=== PATIENT | female | born 1955 | race Caucasian/White ===

== ENCOUNTER → 2019-12-14 15:53 | Outpatient (BNVA) | payer MEDICAID, SELFPAY | PROVIDERS: Family Provider Internal Medicine; PCP Internal Medicine; Visit Provider Nurse Practitioner Family | DX: Z11.59 Encounter for screening for other viral diseases (principal); Z20.828 Contact with and (suspected) exposure to other viral communicable diseases; J06.9 Acute upper respiratory infection, unspecified | CPT/HCPCS: 87635 ==

== ENCOUNTER 2019-12-16 18:18 | Emergency (ER) | payer MEDICAID, SELFPAY ==
[2019-12-16 18:50] VITALS: BP 166/89; PULSE 101; RESP 28; TEMP 37.9; O2SAT 94; BMI 22.7
--- NOTE | 2019-12-16 20:05 | CTR_ITS ---
PROCEDURE INFORMATION: Exam: CT Head Without Contrast Exam date and time: 12/16/2019 8:59 PM Age: 64 years old Clinical indication: Patient HX: General weakness with low grade fever. History of stroke. Covid positive; Additional info: Generalized weakness TECHNIQUE: Imaging protocol: Computed tomography of the head without contrast. Radiation optimization: All CT scans at this facility use at least one of these dose optimization techniques: automated exposure control; mA and/or kV adjustment per patient size (includes targeted exams where dose is matched to clinical indication); or iterative reconstruction. COMPARISON: CT head wo con* [id number] 12/09/2018 8:09 PM RADIATION DOSE METRICS: Total DLP (mGy-cm): 772.06 FINDINGS: Brain: Mild diffuse cortical volume loss. Mild hypodensities in supratentorial periventricular and subcortical white matter. Chronic small lacunar infarct in the left thalamus. Stable encephalomalacia in the medial left temporal lobe. No intracranial hemorrhage. Cerebral ventricles: No ventriculomegaly. Bones/joints: Unremarkable. No acute fracture. Paranasal sinuses: Mild mucosal thickening in the ethmoid air cells. The sinuses are otherwise clear. Mastoid air cells: Visualized mastoid air cells are well aerated. Vasculature: No hyperdense artery. Soft tissues: Unremarkable. CT/CT head wo con* [id number] IMPRESSION: 1. No acute intracranial abnormality. 2. Mild microangiopathy. Radiation Dose CTDIVOL = (mGy): DLP = 772.06 (mGy-cm)
--- NOTE | 2019-12-16 20:05 | XRR_ITS ---
PROCEDURE INFORMATION: Exam: XR Chest, 1 View Exam date and time: 12/16/2019 8:59 PM Age: 64 years old Clinical indication: Other: Weakness TECHNIQUE: Imaging protocol: XR of the chest Views: 1 view. COMPARISON: CR Chest 1 [place] [id number] 12/09/2018 7:55 PM FINDINGS: Lungs: Unremarkable. No consolidation. Pleural space: Unremarkable. No pleural effusion. No pneumothorax. Heart/Mediastinum: Unremarkable. No cardiomegaly. Bones/joints: Mild scoliosis. XR/XR chest 1V portable [id number] IMPRESSION: No acute findings.
--- NOTE | 2019-12-16 20:06 | ECG_ITS ---
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 Measurements Intervals [place] Rate: 94 P: 78 [place]: 186 QRS: 70 QRSD: 91 T: 91 QT: 350 QTc: 439 Interpretive Statements SINUS RHYTHM POSSIBLE RIGHT ATRIAL ENLARGEMENT [0.25mV P WAVE] POSSIBLE LEFT ATRIAL ENLARGEMENT [-0.1mV P WAVE IN V1/V2] MODERATE ST DEPRESSION [0.05+ mV ST DEPRESSION] Compared to ECG 12/09/2018 20:01:51 Left ventricular hypertrophy no longer present ST (T wave) deviation still present Electronically Signed On 12-16-2019 20:35:48 CDT by Rema Hurtado M.D. [id number]
--- NOTE | 2019-12-16 20:07 | ED_ITS ---
Documented by User: Azeem Dela Cruz [place] [facility] [place]17[place] 00:18 HPI - COVID General: Chief Complaint: COVID symptoms Stated Complaint: awaiting covid results/weakness Time Seen by Provider: 12/16/19 19:22 Source: patient and family Mode of arrival: ambulatory Triage information: Has fever, cough or shortness of breath . No known COVID + exposure last 14 days History of Present Illness: HPI Narrative: Patient is a 64-year-old female with a history of diabetes, hypertension, prior CVA, who presents to the emergency department with complaints of generalized weakness for the last 2 days. Patient has been progressively getting weaker and today she had severe difficulty ambulating. She has also had a low-grade fever. No chest pain, no shortness of breath, no nausea or vomiting. MD complaint: reported COVID exposure and has COVID symptoms Prior covid testing: yes, results pending at [facility] [place] location COVID 19 common symptoms: positive fever(s); negative non-productive cough, productive cough, dyspnea, headache(s), throat pain, nausea or vomiting Pertinent comorbid conditions: diabetes and hypertension COVID Results: SARS-CoV-2 Antigen (Rapid) Positive (Negative) H 12/16/19 20:24 12/16/19 SARS-CoV-2 RNA (RT-PCR) Pending 12/14/19 15:53 12/14/19 Review of Systems General: Reports: 10 or more systems reviewed and unremarkable except in HPI and below Const: Reports: fever(s) Eyes: Denies: change in vision or blurry vision ENMT: Denies: throat pain, enlarged tonsils, odynophagia, hoarseness, mouth pain or swelling of lips/tongue Card: Denies: palpitations, irregular heart rhythm, edema or swelling of feet/ankles Resp: Denies: dyspnea, productive cough or non-productive cough GI: Denies: abdominal pain, nausea or vomiting : Denies: flank pain, difficulty voiding, dysuria, urinary frequency, urinary urgency or urinary hesitancy Musc: Denies: neck pain, back pain or extremity swelling Skin/Breast: Denies: rash, pruritus or erythema Neuro: Denies: headache(s), numbness in extremities or weakness in extremities Endo: Denies: polyuria, polydipsia or tired all the time Physical Exam Const: COMMON NORMALS: no acute distress, average body habitus, patient oriented x3, no limitations, healthy appearing, alert and well nourished HENMT: COMMON NORMALS: normocephalic, atraumatic and moist oral mucous membranes HEAD & SCALP: normocephalic and atraumatic Neck/C-Spine: COMMON NORMALS: full ROM, supple, no meningeal signs, no JVD and No carotid bruits Resp: COMMON NORMALS: normal respiratory effort, No retractions, No use of accessory muscles, clear to auscultation bilaterally and percussion normal AUSCULTATION: clear to auscultation bilaterally PERCUSSION: percussion normal Cardio: COMMON NORMALS: no JVD, regular rate, regular rhythm, S1 normal heart sound present, S2 normal heart sound present, No gallops present (Cardio), No clicks present (Cardio), No murmurs present (Cardio), No rub (Cardio) and Pe ripheral pulses 2+ throughout RATE: regular rate RHYTHM: regular rhythm HEART SOUNDS: S1 normal heart sound present and S2 normal heart sound present PERIPHERAL PULSES: Peripheral pulses 2+ throughout GI: COMMON NORMALS: Normal to inspection, nondistended, normoactive bowel sounds present, Soft to palpation, non-tender, No hepatosplenomegaly present, no masses and no bruits PALPATION: Yes Soft to palpation and Yes No hepatosplenomegaly present Extremity: COMMON NORMALS: normal to inspection, full ROM, capillary refill normal, no calf tenderness and no pedal edema Neuro: COMMON NORMALS: patient oriented x3 SENSORIUM/ORIENTATION: Yes alert MENINGEAL SIGNS: Yes no meningeal signs Skin: COMMON NORMALS: no rashes or lesions noted, no wounds, turgor normal, no jaundice, no petechiae and no mottling GENERAL SKIN EXAM: no rashes or lesions noted and turgor normal Course Vital Signs: Vital signs: Vital Signs Temperature 100.2 F H 12/16/19 18:50 Pulse Rate 97 12/16/19 21:45 Respiratory Rate 21 H 12/16/19 21:45 Blood Pressure 174/94 12/16/19 21:45 Pulse Oximetry 93 12/16/19 21:45 MDM - COVID Lab Data Result diagrams: 12/16/19 20:24 12/17/19 00:27 Labs: Lab Results 12/16/19 12/16/19 12/16/19 Range/Units 20:22 20:24 20:24 WBC 7.8 (4.0-10.0) 10^3/uL RBC 5.24 (4.1-5.3) 10^6/uL Hgb 13.9 (11.5-15.3) g/dL Hct 41.8 (37.0-47.0) % MCV 79.8 L (81-99) fL MCH 26.5 L (28.0-34.0) pg MCHC 33.3 (30.0-36.0) g/dL RDW 13.5 (12.1-15.1) % Plt Count 218 (130-400) 10^3/cmm MPV 10.7 H (7.4-10.4) fL Neut % (Auto) 79.3 % Lymph % (Auto) 14.7 % Morrison % (Auto) 4.9 % Eos % (Auto) 0.0 % Baso % (Auto) 0.3 % Neut # (Auto) 6.21 (1.8-7.7) 10^3/uL Lymph # (Auto) 1.2 (0.8-4.8) 10^3/uL Morrison # (Auto) 0.4 (0.2-0.9) 10^3/uL Eos # (Auto) 0.0 (0.0-0.8) 10^3/uL Baso # (Auto) 0.0 (0.0-0.1) 10^3/uL Nucleated RBC % (auto) 0 % Nucleated RBCs # 0.0 /100WBC PT 12.50 (12.1-14.9) SECONDS INR 0.91 (0.8-1.2) D-Dimer 1.80 H (0-0.59) ug/mIFEU Specimen Type Sample Site ABG pH (7.35-7.45) ABG pCO2 (35-45) mmHg ABG pO2 (80.0-100.0) mmHg ABG HCO3 (22-26) mmol/L ABG Base Excess (-2.0-2.0) mmol/L Vidal Test Hematocrit (37-47) % O2 Delivery Device FiO2 % Specimen Drawn By [employer] ID Sodium (136-145) mmol/L Potassium (3.5-5.1) mmol/L Chloride (98-107) mmol/L Carbon Dioxide (22-29) mmol/L Anion Gap (5-19) BUN (8-23) mg/dL Creatinine (0.5-0.9) mg/dL GFR Calculation (90-130) mL/min Glucose (65-115) mg/dL POC Glucose (70-110) mg/dL Estimat Average Glucose Hemoglobin A1c (4.0-6.0) % Calculated Osmolality (285-295) mOsm/kg Lactic Acid (0.5-2.2) mmol/L Calcium (8.5-10.5) mg/dL Magnesium (1.7-2.3) mg/dL Total Bilirubin (0.15-1.2) mg/dL AST (0-32) U/L ALT (0-33) U/L Alkaline Phosphatase (35-105) IU/L Lactate Dehydrogenase (135-214) U/L Creatine Kinase (26-192) U/L Troponin T Baseline (0-10) ng/L Troponin T 120 Minute (0-10) ng/L Delta Troponin T (0-10) ABS# C-Reactive Protein (0.0-4.9) mg/L NT-Pro-B Natriuret Pep (0-125) pg/mL Total Protein (6.6-8.7) g/dL Albumin (3.5-5.2) g/dL Globulin (1.3-4.6) g/dL Procalcitonin (0-0.5) ng/mL Serum Ketones (Negative) Influenza Type A Ag Negative (Negative) Influenza Type B Ag Negative (Negative) SARS-CoV-2 Ag (Rapid) (Negative) 12/16/19 12/16/19 12/16/19 Range/Units 20:24 20:24 20:24 WBC (4.0-10.0) 10^3/uL RBC (4.1-5.3) 10^6/uL Hgb (11.5-15.3) g/dL Hct (37.0-47.0) % MCV (81-99) fL MCH (28.0-34.0) pg MCHC (30.0-36.0) g/dL RDW (12.1-15.1) % Plt Count (130-400) 10^3/cmm MPV (7.4-10.4) fL Neut % (Auto) % Lymph % (Auto) % Morrison % (Auto) % Eos % (Auto) % Baso % (Auto) % Neut # (Auto) (1.8-7.7) 10^3/uL Lymph # (Auto) (0.8-4.8) 10^3/uL Morrison # (Auto) (0.2-0.9) 10^3/uL Eos # (Auto) (0.0-0.8) 10^3/uL Baso # (Auto) (0.0-0.1) 10^3/uL Nucleated RBC % (auto) % Nucleated RBCs # /100WBC PT (12.1-14.9) SECONDS INR (0.8-1.2) D-Dimer (0-0.59) ug/mIFEU Specimen Type Sample Site ABG pH (7.35-7.45) ABG pCO2 (35-45) mmHg ABG pO2 (80.0-100.0) mmHg ABG HCO3 (22-26) mmol/L ABG Base Excess (-2.0-2.0) mmol/L Vidal Test Hematocrit (37-47) % O2 Delivery Device FiO2 % Specimen Drawn By [employer] ID Sodium 128 L (136-145) mmol/L Potassium 4.6 (3.5-5.1) mmol/L Chloride 91 L (98-107) mmol/L Carbon Dioxide 19 L (22-29) mmol/L Anion Gap 22.6 H (5-19) BUN 16 (8-23) mg/dL Creatinine 0.6 (0.5-0.9) mg/dL GFR Calculation 100.6 (90-130) mL/min Glucose 416 H (65-115) mg/dL POC Glucose (70-110) mg/dL Estimat Average Glucose Hemoglobin A1c (4.0-6.0) % Calculated Osmolality 285 (285-295) mOsm/kg Lactic Acid 1.3 (0.5-2.2) mmol/L Calcium 9.0 (8.5-10.5) mg/dL Magnesium 1.8 (1.7-2.3) mg/dL Total Bilirubin 0.4 (0.15-1.2) mg/dL AST 23 (0-32) U/L ALT 16 (0-33) U/L Alkaline Phosphatase 88 (35-105) IU/L Lactate Dehydrogenase 168 (135-214) U/L Creatine Kinase 22 L (26-192) U/L Troponin T Baseline 15 H (0-10) ng/L Troponin T 120 Minute (0-10) ng/L Delta Troponin T (0-10) ABS# C-Reactive Protein 149.1 H (0.0-4.9) mg/L NT-Pro-B Natriuret Pep 37 (0-125) pg/mL Total Protein 6.4 L (6.6-8.7) g/dL Albumin 3.3 L (3.5-5.2) g/dL Globulin 3.1 (1.3-4.6) g/dL Procalcitonin 0.09 (0-0.5) ng/mL Serum Ketones (Negative) Influenza Type A Ag (Negative) Influenza Type B Ag (Negative) SARS-CoV-2 Ag (Rapid) (Negative) 12/16/19 12/16/19 12/16/19 Range/Units 20:24 20:24 20:24 WBC (4.0-10.0) 10^3/uL RBC (4.1-5.3) 10^6/uL Hgb (11.5-15.3) g/dL Hct (37.0-47.0) % MCV (81-99) fL MCH (28.0-34.0) pg MCHC (30.0-36.0) g/dL RDW (12.1-15.1) % Plt Count (130-400) 10^3/cmm MPV (7.4-10.4) fL Neut % (Auto) % Lymph % (Auto) % Morrison % (Auto) % Eos % (Auto) % Baso % (Auto) % Neut # (Auto) (1.8-7.7) 10^3/uL Lymph # (Auto) (0.8-4.8) 10^3/uL Morrison # (Auto) (0.2-0.9) 10^3/uL Eos # (Auto) (0.0-0.8) 10^3/uL Baso # (Auto) (0.0-0.1) 10^3/uL Nucleated RBC % (auto) % Nucleated RBCs # /100WBC PT (12.1-14.9) SECONDS INR (0.8-1.2) D-Dimer (0-0.59) ug/mIFEU Specimen Type Sample Site ABG pH (7.35-7.45) ABG pCO2 (35-45) mmHg ABG pO2 (80.0-100.0) mmHg ABG HCO3 (22-26) mmol/L ABG Base Excess (-2.0-2.0) mmol/L Vidal Test Hematocrit (37-47) % O2 Delivery Device FiO2 % Specimen Drawn By [employer] ID Sodium (136-145) mmol/L Potassium (3.5-5.1) mmol/L Chloride (98-107) mmol/L Carbon Dioxide (22-29) mmol/L Anion Gap (5-19) BUN (8-23) mg/dL Creatinine (0.5-0.9) mg/dL GFR Calculation (90-130) mL/min Glucose (65-115) mg/dL POC Glucose (70-110) mg/dL Estimat Average Glucose 329 Hemoglobin A1c 13.1 H (4.0-6.0) % Calculated Osmolality (285-295) mOsm/kg Lactic Acid (0.5-2.2) mmol/L Calcium (8.5-10.5) mg/dL Magnesium (1.7-2.3) mg/dL Total Bilirubin (0.15-1.2) mg/dL AST (0-32) U/L ALT (0-33) U/L Alkaline Phosphatase (35-105) IU/L Lactate Dehydrogenase (135-214) U/L Creatine Kinase (26-192) U/L Troponin T Baseline (0-10) ng/L Troponin T 120 Minute (0-10) ng/L Delta Troponin T (0-10) ABS# C-Reactive Protein (0.0-4.9) mg/L NT-Pro-B Natriuret Pep (0-125) pg/mL Total Protein (6.6-8.7) g/dL Albumin (3.5-5.2) g/dL Globulin (1.3-4.6) g/dL Procalcitonin (0-0.5) ng/mL Serum Ketones Positive H (Negative) Influenza Type A Ag (Negative) Influenza Type B Ag (Negative) SARS-CoV-2 Ag (Rapid) Positive H (Negative) 12/16/19 12/16/19 12/16/19 Range/Units 22:07 22:31 23:39 WBC (4.0-10.0) 10^3/uL RBC (4.1-5.3) 10^6/uL Hgb (11.5-15.3) g/dL Hct (37.0-47.0) % MCV (81-99) fL MCH (28.0-34.0) pg MCHC (30.0-36.0) g/dL RDW (12.1-15.1) % Plt Count (130-400) 10^3/cmm MPV (7.4-10.4) fL Neut % (Auto) % Lymph % (Auto) % Morrison % (Auto) % Eos % (Auto) % Baso % (Auto) % Neut # (Auto) (1.8-7.7) 10^3/uL Lymph # (Auto) (0.8-4.8) 10^3/uL Morrison # (Auto) (0.2-0.9) 10^3/uL Eos # (Auto) (0.0-0.8) 10^3/uL Baso # (Auto) (0.0-0.1) 10^3/uL Nucleated RBC % (auto) % Nucleated RBCs # /100WBC PT (12.1-14.9) SECONDS INR (0.8-1.2) D-Dimer (0-0.59) ug/mIFEU Specimen Type Arterial Sample Site Brachial, left ABG pH 7.44 (7.35-7.45) ABG pCO2 28.5 L (35-45) mmHg ABG pO2 54.8 L (80.0-100.0) mmHg ABG HCO3 19.4 L (22-26) mmol/L ABG Base Excess -3.5 L (-2.0-2.0) mmol/L Vidal Test N/a Hematocrit 43.2 (37-47) % O2 Delivery Device Room air FiO2 21.0 % Specimen Drawn By [employer]arkr Sodium (136-145) mmol/L Potassium (3.5-5.1) mmol/L Chloride (98-107) mmol/L Carbon Dioxide (22-29) mmol/L Anion Gap (5-19) BUN (8-23) mg/dL Creatinine (0.5-0.9) mg/dL GFR Calculation (90-130) mL/min Glucose (65-115) mg/dL POC Glucose 295 (70-110) mg/dL Estimat Average Glucose Hemoglobin A1c (4.0-6.0) % Calculated Osmolality (285-295) mOsm/kg Lactic Acid (0.5-2.2) mmol/L Calcium (8.5-10.5) mg/dL Magnesium (1.7-2.3) mg/dL Total Bilirubin (0.15-1.2) mg/dL AST (0-32) U/L ALT (0-33) U/L Alkaline Phosphatase (35-105) IU/L Lactate Dehydrogenase (135-214) U/L Creatine Kinase (26-192) U/L Troponin T Baseline (0-10) ng/L Troponin T 120 Minute 13.66 H (0-10) ng/L Delta Troponin T -1.34 L (0-10) ABS# C-Reactive Protein (0.0-4.9) mg/L NT-Pro-B Natriuret Pep (0-125) pg/mL Total Protein (6.6-8.7) g/dL Albumin (3.5-5.2) g/dL Globulin (1.3-4.6) g/dL Procalcitonin (0-0.5) ng/mL Serum Ketones (Negative) Influenza Type A Ag (Negative) Influenza Type B Ag (Negative) SARS-CoV-2 Ag (Rapid) (Negative) 12/17/19 12/17/19 12/17/19 Range/Units 00:20 00:27 01:26 WBC (4.0-10.0) 10^3/uL RBC (4.1-5.3) 10^6/uL Hgb (11.5-15.3) g/dL Hct (37.0-47.0) % MCV (81-99) fL MCH (28.0-34.0) pg MCHC (30.0-36.0) g/dL RDW (12.1-15.1) % Plt Count (130-400) 10^3/cmm MPV (7.4-10.4) fL Neut % (Auto) % Lymph % (Auto) % Morrison % (Auto) % Eos % (Auto) % Baso % (Auto) % Neut # (Auto) (1.8-7.7) 10^3/uL Lymph # (Auto) (0.8-4.8) 10^3/uL Morrison # (Auto) (0.2-0.9) 10^3/uL Eos # (Auto) (0.0-0.8) 10^3/uL Baso # (Auto) (0.0-0.1) 10^3/uL Nucleated RBC % (auto) % Nucleated RBCs # /100WBC PT (12.1-14.9) SECONDS INR (0.8-1.2) D-Dimer (0-0.59) ug/mIFEU Specimen Type Sample Site ABG pH (7.35-7.45) ABG pCO2 (35-45) mmHg ABG pO2 (80.0-100.0) mmHg ABG HCO3 (22-26) mmol/L ABG Base Excess (-2.0-2.0) mmol/L Vidal Test Hematocrit (37-47) % O2 Delivery Device FiO2 % Specimen Drawn By [employer] ID Sodium 131 L (136-145) mmol/L Potassium 3.5 (3.5-5.1) mmol/L Chloride 100 (98-107) mmol/L Carbon Dioxide 18 L (22-29) mmol/L Anion Gap 16.5 (5-19) BUN 12 (8-23) mg/dL Creatinine 0.6 (0.5-0.9) mg/dL GFR Calculation 100.6 (90-130) mL/min Glucose 292 H (65-115) mg/dL POC Glucose 272 249 (70-110) mg/dL Estimat Average Glucose Hemoglobin A1c (4.0-6.0) % Calculated Osmolality 283 L (285-295) mOsm/kg Lactic Acid (0.5-2.2) mmol/L Calcium 7.7 L (8.5-10.5) mg/dL Magnesium (1.7-2.3) mg/dL Total Bilirubin (0.15-1.2) mg/dL AST (0-32) U/L ALT (0-33) U/L Alkaline Phosphatase (35-105) IU/L Lactate Dehydrogenase (135-214) U/L Creatine Kinase (26-192) U/L Troponin T Baseline (0-10) ng/L Troponin T 120 Minute (0-10) ng/L Delta Troponin T (0-10) ABS# C-Reactive Protein (0.0-4.9) mg/L NT-Pro-B Natriuret Pep (0-125) pg/mL Total Protein (6.6-8.7) g/dL Albumin (3.5-5.2) g/dL Globulin (1.3-4.6) g/dL Procalcitonin (0-0.5) ng/mL Serum Ketones (Negative) Influenza Type A Ag (Negative) Influenza Type B Ag (Negative) SARS-CoV-2 Ag (Rapid) (Negative) COVID Results: SARS-CoV-2 Antigen (Rapid) Positive (Negative) H 12/16/19 20:24 12/16/19 SARS-CoV-2 RNA (RT-PCR) Pending 12/14/19 15:53 12/14/19 EKG Data EKG 1: Attestation: I personally reviewed and interpreted this EKG as follows: EKG interpretation date: 12/16/19 EKG interpretation time: 20:20 Prior EKG tracings: not available for review Interpretation: Sinus rhythm HR [address] changes EKG 2: Attestation: I personally reviewed and interpreted this EKG as follows: EKG interpretation date: 12/16/19 EKG interpretation time: 22:14 Prior EKG tracings: available for review Interpretation: Sinus rhythm HR [address] changes Discharge Plan Discharge Patient Disposition: Home Clinical Impression: COVID-19 DKA (diabetic ketoacidoses) Qualifiers: Diabetes mellitus type: type 2 Diabetes mellitus complication detail: without coma Qualified Code(s): E11.10 - Type 2 diabetes mellitus with ketoacidosis without coma Condition: Stable Prescriptions: New glipizide 5 mg tablet 5 mg PO BID Qty: 60 RF: 0 No Action ascorbic acid (vitamin C) 500 mg capsule PO RF: 0 cholecalciferol (vitamin D3) 50 mcg (2,000 unit) capsule 50 mcg PO DAILY RF: 0 ferrous fumarate 324 mg (106 mg iron) tablet 324 mg PO DAILY RF: 0 coenzyme Q10 [Co Q-10] 50 mg capsule 50 mg PO DAILY RF: 0 clear guard PO RF: 0 melatonin 5 mg tablet 5 mg PO DAILY RF: 0 cranberry 500 mg capsule 500 mg PO BID RF: 0 metformin 1,000 mg tablet 2,000 mg PO DAILY RF: 0 Discharge Orders: Discharge Order (Routine); Ordered 12/17/19 Ordered By: Sanjay Kasper Referrals: Jesus Baig MD [Primary Care Provider] - Discharge Diet: Diabetic Discharge Activity: Increase activity as tolerated Patient Instructions: Diabetic Ketoacidosis (ED) Activity Restrictions/Additional Instructions: check your sugar every morning. If it is staying above 200, take the prescribed medication. Return for continued illness such as vomiting, mental status changes, inability to control his sugar at home, other concerning symptoms. Coding Level of Care Code ED Quoter for Chg Fwd Exam Comprehensive Documented by User: Sanjay Kasper, 12/17/19 01:58 HPI - COVID General: Chief Complaint: COVID symptoms Stated Complaint: awaiting covid results/weakness Time Seen by Provider: 12/16/19 19:22 COVID Results: SARS-CoV-2 Antigen (Rapid) Positive (Negative) H 12/16/19 20:24 12/16/19 SARS-CoV-2 RNA (RT-PCR) Pending 12/14/19 15:53 12/14/19 Course ED course: 64-year-old female presenting with generalized weakness. She was noted to have high blood sugar. She was checked out to me by Dr. Dela Cruz at shift change. Sugar was on its way down with fluid bolus. She was given a sm all dose of insulin along with another fluid bolus. Her sugars down to the 250 range. Her anion gap which was minimal, was closed on her second BMP. It appears she is only on metformin for her diabetes. She will be placed on glipizide as she has normal renal function. She may take the glipizide as needed, and this was explained to her. Her and her family were given the option of observation admission for stricter control of blood sugar, and other possible treatment options regarding the stroke, but they declined. Vital Signs: Vital signs: Vital Signs Temperature 100.2 F H 12/16/19 18:50 Pulse Rate 97 12/16/19 21:45 Respiratory Rate 21 H 12/16/19 21:45 Blood Pressure 174/94 12/16/19 21:45 Pulse Oximetry 93 12/16/19 21:45 MDM - COVID Lab Data Result diagrams: 12/16/19 20:24 12/17/19 00:27 Labs: Lab Results 12/16/19 12/16/19 12/16/19 Range/Units 20:22 20:24 20:24 WBC 7.8 (4.0-10.0) 10^3/uL RBC 5.24 (4.1-5.3) 10^6/uL Hgb 13.9 (11.5-15.3) g/dL Hct 41.8 (37.0-47.0) % MCV 79.8 L (81-99) fL MCH 26.5 L (28.0-34.0) pg MCHC 33.3 (30.0-36.0) g/dL RDW 13.5 (12.1-15.1) % Plt Count 218 (130-400) 10^3/cmm MPV 10.7 H (7.4-10.4) fL Neut % (Auto) 79.3 % Lymph % (Auto) 14.7 % Morrison % (Auto) 4.9 % Eos % (Auto) 0.0 % Baso % (Auto) 0.3 % Neut # (Auto) 6.21 (1.8-7.7) 10^3/uL Lymph # (Auto) 1.2 (0.8-4.8) 10^3/uL Morrison # (Auto) 0.4 (0.2-0.9) 10^3/uL Eos # (Auto) 0.0 (0.0-0.8) 10^3/uL Baso # (Auto) 0.0 (0.0-0.1) 10^3/uL Nucleated RBC % (auto) 0 % Nucleated RBCs # 0.0 /100WBC PT 12.50 (12.1-14.9) SECONDS INR 0.91 (0.8-1.2) D-Dimer 1.80 H (0-0.59) ug/mIFEU Specimen Type Sample Site ABG pH (7.35-7.45) ABG pCO2 (35-45) mmHg ABG pO2 (80.0-100.0) mmHg ABG HCO3 (22-26) mmol/L ABG Base Excess (-2.0-2.0) mmol/L Vidal Test Hematocrit (37-47) % O2 Delivery Device FiO2 % Specimen Drawn By [employer] ID Sodium (136-145) mmol/L Potassium (3.5-5.1) mmol/L Chloride (98-107) mmol/L Carbon Dioxide (22-29) mmol/L Anion Gap (5-19) BUN (8-23) mg/dL Creatinine (0.5-0.9) mg/dL GFR Calculation (90-130) mL/min Glucose (65-115) mg/dL POC Glucose (70-110) mg/dL Estimat Average Glucose Hemoglobin A1c (4.0-6.0) % Calculated Osmolality (285-295) mOsm/kg Lactic Acid (0.5-2.2) mmol/L Calcium (8.5-10.5) mg/dL Magnesium (1.7-2.3) mg/dL Total Bilirubin (0.15-1.2) mg/dL AST (0-32) U/L ALT (0-33) U/L Alkaline Phosphatase (35-105) IU/L Lactate Dehydrogenase (135-214) U/L Creatine Kinase (26-192) U/L Troponin T Baseline (0-10) ng/L Troponin T 120 Minute (0-10) ng/L Delta Troponin T (0-10) ABS# C-Reactive Protein (0.0-4.9) mg/L NT-Pro-B Natriuret Pep (0-125) pg/mL Total Protein (6.6-8.7) g/dL Albumin (3.5-5.2) g/dL Globulin (1.3-4.6) g/dL Procalcitonin (0-0.5) ng/mL Serum Ketones (Negative) Influenza Type A Ag Negative (Negative) Influenza Type B Ag Negative (Negative) SARS-CoV-2 Ag (Rapid) (Negative) 12/16/19 12/16/19 12/16/19 Range/Units 20:24 20:24 20:24 WBC (4.0-10.0) 10^3/uL RBC (4.1-5.3) 10^6/uL Hgb (11.5-15.3) g/dL Hct (37.0-47.0) % MCV (81-99) fL MCH (28.0-34.0) pg MCHC (30.0-36.0) g/dL RDW (12.1-15.1) % Plt Count (130-400) 10^3/cmm MPV (7.4-10.4) fL Neut % (Auto) % Lymph % (Auto) % Morrison % (Auto) % Eos % (Auto) % Baso % (Auto) % Neut # (Auto) (1.8-7.7) 10^3/uL Lymph # (Auto) (0.8-4.8) 10^3/uL Morrison # (Auto) (0.2-0.9) 10^3/uL Eos # (Auto) (0.0-0.8) 10^3/uL Baso # (Auto) (0.0-0.1) 10^3/uL Nucleated RBC % (auto) % Nucleated RBCs # /100WBC PT (12.1-14.9) SECONDS INR (0.8-1.2) D-Dimer (0-0.59) ug/mIFEU Specimen Type Sample Site ABG pH (7.35-7.45) ABG pCO2 (35-45) mmHg ABG pO2 (80.0-100.0) mmHg ABG HCO3 (22-26) mmol/L ABG Base Excess (-2.0-2.0) mmol/L Vidal Test Hematocrit (37-47) % O2 Delivery Device FiO2 % Specimen Drawn By [employer] ID Sodium 128 L (136-145) mmol/L Potassium 4.6 (3.5-5.1) mmol/L Chloride 91 L (98-107) mmol/L Carbon Dioxide 19 L (22-29) mmol/L Anion Gap 22.6 H (5-19) BUN 16 (8-23) mg/dL Creatinine 0.6 (0.5-0.9) mg/dL GFR Calculation 100.6 (90-130) mL/min Glucose 416 H (65-115) mg/dL POC Glucose (70-110) mg/dL Estimat Average Glucose Hemoglobin A1c (4.0-6.0) % Calculated Osmolality 285 (285-295) mOsm/kg Lactic Acid 1.3 (0.5-2.2) mmol/L Calcium 9.0 (8.5-10.5) mg/dL Magnesium 1.8 (1.7-2.3) mg/dL Total Bilirubin 0.4 (0.15-1.2) mg/dL AST 23 (0-32) U/L ALT 16 (0-33) U/L Alkaline Phosphatase 88 (35-105) IU/L Lactate Dehydrogenase 168 (135-214) U/L Creatine Kinase 22 L (26-192) U/L Troponin T Baseline 15 H (0-10) ng/L Troponin T 120 Minute (0-10) ng/L Delta Troponin T (0-10) ABS# C-Reactive Protein 149.1 H (0.0-4.9) mg/L NT-Pro-B Natriuret Pep 37 (0-125) pg/mL Total Protein 6.4 L (6.6-8.7) g/dL Albumin 3.3 L (3.5-5.2) g/dL Globulin 3.1 (1.3-4.6) g/dL Procalcitonin 0.09 (0-0.5) ng/mL Serum Ketones (Negative) Influenza Type A Ag (Negative) Influenza Type B Ag (Negative) SARS-CoV-2 Ag (Rapid) (Negative) 12/16/19 12/16/19 12/16/19 Range/Units 20:24 20:24 20:24 WBC (4.0-10.0) 10^3/uL RBC (4.1-5.3) 10^6/uL Hgb (11.5-15.3) g/dL Hct (37.0-47.0) % MCV (81-99) fL MCH (28.0-34.0) pg MCHC (30.0-36.0) g/dL RDW (12.1-15.1) % Plt Count (130-400) 10^3/cmm MPV (7.4-10.4) fL Neut % (Auto) % Lymph % (Auto) % Morrison % (Auto) % Eos % (Auto) % Baso % (Auto) % Neut # (Auto) (1.8-7.7) 10^3/uL Lymph # (Auto) (0.8-4.8) 10^3/uL Morrison # (Auto) (0.2-0.9) 10^3/uL Eos # (Auto) (0.0-0.8) 10^3/uL Baso # (Auto) (0.0-0.1) 10^3/uL Nucleated RBC % (auto) % Nucleated RBCs # /100WBC PT (12.1-14.9) SECONDS INR (0.8-1.2) D-Dimer (0-0.59) ug/mIFEU Specimen Type Sample Site ABG pH (7.35-7.45) ABG pCO2 (35-45) mmHg ABG pO2 (80.0-100.0) mmHg ABG HCO3 (22-26) mmol/L ABG Base Excess (-2.0-2.0) mmol/L Vidal Test Hematocrit (37-47) % O2 Delivery Device FiO2 % Specimen Drawn By [employer] ID Sodium (136-145) mmol/L Potassium (3.5-5.1) mmol/L Chloride (98-107) mmol/L Carbon Dioxide (22-29) mmol/L Anion Gap (5-19) BUN (8-23) mg/dL Creatinine (0.5-0.9) mg/dL GFR Calculation (90-130) mL/min Glucose (65-115) mg/dL POC Glucose (70-110) mg/dL Estimat Average Glucose 329 Hemoglobin A1c 13.1 H (4.0-6.0) % Calculated Osmolality (285-295) mOsm/kg Lactic Acid (0.5-2.2) mmol/L Calcium (8.5-10.5) mg/dL Magnesium (1.7-2.3) mg/dL Total Bilirubin (0.15-1.2) mg/dL AST (0-32) U/L ALT (0-33) U/L Alkaline Phosphatase (35-105) IU/L Lactate Dehydrogenase (135-214) U/L Creatine Kinase (26-192) U/L Troponin T Baseline (0-10) ng/L Troponin T 120 Minute (0-10) ng/L Delta Troponin T (0-10) ABS# C-Reactive Protein (0.0-4.9) mg/L NT-Pro-B Natriuret Pep (0-125) pg/mL Total Protein (6.6-8.7) g/dL Albumin (3.5-5.2) g/dL Globulin (1.3-4.6) g/dL Procalcitonin (0-0.5) ng/mL Serum Ketones Positive H (Negative) Influenza Type A Ag (Negative) Influenza Type B Ag (Negative) SARS-CoV-2 Ag (Rapid) Positive H (Negative) 12/16/19 12/16/19 12/16/19 Range/Units 22:07 22:31 23:39 WBC (4.0-10.0) 10^3/uL RBC (4.1-5.3) 10^6/uL Hgb (11.5-15.3) g/dL Hct (37.0-47.0) % MCV (81-99) fL MCH (28.0-34.0) pg MCHC (30.0-36.0) g/dL RDW (12.1-15.1) % Plt Count (130-400) 10^3/cmm MPV (7.4-10.4) fL Neut % (Auto) % Lymph % (Auto) % Morrison % (Auto) % Eos % (Auto) % Baso % (Auto) % Neut # (Auto) (1.8-7.7) 10^3/uL Lymph # (Auto) (0.8-4.8) 10^3/uL Morrison # (Auto) (0.2-0.9) 10^3/uL Eos # (Auto) (0.0-0.8) 10^3/uL Baso # (Auto) (0.0-0.1) 10^3/uL Nucleated RBC % (auto) % Nucleated RBCs # /100WBC PT (12.1-14.9) SECONDS INR (0.8-1.2) D-Dimer (0-0.59) ug/mIFEU Specimen Type Arterial Sample Site Brachial, left ABG pH 7.44 (7.35-7.45) ABG pCO2 28.5 L (35-45) mmHg ABG pO2 54.8 L (80.0-100.0) mmHg ABG HCO3 19.4 L (22-26) mmol/L ABG Base Excess -3.5 L (-2.0-2.0) mmol/L Vidal Test N/a Hematocrit 43.2 (37-47) % O2 Delivery Device Room air FiO2 21.0 % Specimen Drawn By harkr [employer] Harkr Sodium (136-145) mmol/L Potassium (3.5-5.1) mmol/L Chloride (98-107) mmol/L Carbon Dioxide (22-29) mmol/L Anion Gap (5-19) BUN (8-23) mg/dL Creatinine (0.5-0.9) mg/dL GFR Calculation (90-130) mL/min Glucose (65-115) mg/dL POC Glucose 295 (70-110) mg/dL Estimat Average Glucose Hemoglobin A1c (4.0-6.0) % Calculated Osmolality (285-295) mOsm/kg Lactic Acid (0.5-2.2) mmol/L Calcium (8.5-10.5) mg/dL Magnesium (1.7-2.3) mg/dL Total Bilirubin (0.15-1.2) mg/dL AST (0-32) U/L ALT (0-33) U/L Alkaline Phosphatase (35-105) IU/L Lactate Dehydrogenase (135-214) U/L Creatine Kinase (26-192) U/L Troponin T Baseline (0-10) ng/L Troponin T 120 Minute 13.66 H (0-10) ng/L Delta Troponin T -1.34 L (0-10) ABS# C-Reactive Protein (0.0-4.9) mg/L NT-Pro-B Natriuret Pep (0-125) pg/mL Total Protein (6.6-8.7) g/dL Albumin (3.5-5.2) g/dL Globulin (1.3-4.6) g/dL Procalcitonin (0-0.5) ng/mL Serum Ketones (Negative) Influenza Type A Ag (Negative) Influenza Type B Ag (Negative) SARS-CoV-2 Ag (Rapid) (Negative) 10/24/20 10/24/20 10/24/20 Range/Units 00:20 00:27 01:26 WBC (4.0-10.0) 10^3/uL RBC (4.1-5.3) 10^6/uL Hgb (11.5-15.3) g/dL Hct (37.0-47.0) % MCV (81-99) fL MCH (28.0-34.0) pg MCHC (30.0-36.0) g/dL RDW (12.1-15.1) % Plt Count (130-400) 10^3/cmm MPV (7.4-10.4) fL Neut % (Auto) % Lymph % (Auto) % Morrison % (Auto) % Eos % (Auto) % Baso % (Auto) % Neut # (Auto) (1.8-7.7) 10^3/uL Lymph # (Auto) (0.8-4.8) 10^3/uL [place] # (Auto) (0.2-0.9) 10^3/uL Eos # (Auto) (0.0-0.8) 10^3/uL Baso # (Auto) (0.0-0.1) 10^3/uL Nucleated RBC % (auto) % Nucleated RBCs # /100WBC PT (12.1-14.9) SECONDS INR (0.8-1.2) D-Dimer (0-0.59) ug/mIFEU Specimen Type Sample Site ABG pH (7.35-7.45) ABG pCO2 (35-45) mmHg ABG pO2 (80.0-100.0) mmHg ABG HCO3 (22-26) mmol/L ABG Base Excess (-2.0-2.0) mmol/L Vidal Test Hematocrit (37-47) % O2 Delivery Device FiO2 % Specimen Drawn By [employer] ID Sodium 131 L (136-145) mmol/L Potassium 3.5 (3.5-5.1) mmol/L Chloride 100 (98-107) mmol/L Carbon Dioxide 18 L (22-29) mmol/L Anion Gap 16.5 (5-19) BUN 12 (8-23) mg/dL Creatinine 0.6 (0.5-0.9) mg/dL GFR Calculation 100.6 (90-130) mL/min Glucose 292 H (65-115) mg/dL POC Glucose 272 249 (70-110) mg/dL Estimat Average Glucose Hemoglobin A1c (4.0-6.0) % Calculated Osmolality 283 L (285-295) mOsm/kg Lactic Acid (0.5-2.2) mmol/L Calcium 7.7 L (8.5-10.5) mg/dL Magnesium (1.7-2.3) mg/dL Total Bilirubin (0.15-1.2) mg/dL AST (0-32) U/L ALT (0-33) U/L Alkaline Phosphatase (35-105) IU/L Lactate Dehydrogenase (135-214) U/L Creatine Kinase (26-192) U/L Troponin T Baseline (0-10) ng/L Troponin T 120 Minute (0-10) ng/L Delta Troponin T (0-10) ABS# C-Reactive Protein (0.0-4.9) mg/L NT-Pro-B Natriuret Pep (0-125) pg/mL Total Protein (6.6-8.7) g/dL Albumin (3.5-5.2) g/dL Globulin (1.3-4.6) g/dL Procalcitonin (0-0.5) ng/mL Serum Ketones (Negative) Influenza Type A Ag (Negative) Influenza Type B Ag (Negative) SARS-CoV-2 Ag (Rapid) (Negative) COVID Results: SARS-CoV-2 Antigen (Rapid) Positive (Negative) H 12/16/19 20:24 12/16/19 SARS-CoV-2 RNA (RT-PCR) Pending 12/14/19 15:53 12/14/19 Discharge Plan Discharge Patient Disposition: Home Clinical Impression: COVID-19 DKA (diabetic ketoacidoses) Qualifiers: Diabetes mellitus type: type 2 Diabetes mellitus complication detail: without coma Qualified Code(s): E11.10 - Type 2 diabetes mellitus with ketoacidosis without coma Condition: Stable Prescriptions: New glipizide 5 mg tablet 5 mg PO BID Qty: 60 RF: 0 No Action ascorbic acid (vitamin C) 500 mg capsule PO RF: 0 cholecalciferol (vitamin D3) 50 mcg (2,000 unit) capsule 50 mcg PO DAILY RF: 0 ferrous fumarate 324 mg (106 mg iron) tablet 324 mg PO DAILY RF: 0 coenzyme Q10 [Co Q-10] 50 mg capsule 50 mg PO DAILY RF: 0 clear guard PO RF: 0 melatonin 5 mg tablet 5 mg PO DAILY RF: 0 cranberry 500 mg capsule 500 mg PO BID RF: 0 metformin 1,000 mg tablet 2,000 mg PO DAILY RF: 0 Discharge Orders: Discharge Order (Routine); Ordered 12/17/19 Ordered By: Sanjay Kasper Referrals: Jesus Baig MD [Primary Care Provider] - Discharge Diet: Diabetic Discharge Activity: Increase activity as tolerated Patient Instructions: Diabetic Ketoacidosis (ED) Activity Restrictions/Additional Instructions: check your sugar every morning. If it is staying above 200, take the prescribed medication. Return for continued illness such as vomiting, mental status changes, inability to control his sugar at home, other concerning symptoms. Coding Level of Care Code ED Quoter for Amalia Flowers Exam Comprehensive
[2019-12-16 20:30] VITALS: BP 174/94; PULSE 97; RESP 23; O2SAT 94
[2019-12-16 20:42] LABS: Basophils % 0.3 %; Hematocrit 41.8 % (37.0-47.0); Hemoglobin 13.9 g/dL (11.5-15.3); Lymphocytes # 1.2 10^3/uL (0.8-4.8); Lymphocytes % 14.7 %; Mean Corpuscular HGB Conc 33.3 g/dL (30.0-36.0); Mean Corpuscular Hemoglobin 26.5 pg (28.0-34.0); Mean Corpuscular Volume 79.8 fL (81-99); Mean Platelet Volume 10.7 fL (7.4-10.4); Monocytes # 0.4 10^3/uL (0.2-0.9); Monocytes % 4.9 %; Neutrophils # 6.21 10^3/uL (1.8-7.7); Neutrophils % 79.3 %; Nucleated Red Blood Cells % 0 %; Platelet Count 218 10^3/cmm (130-400); Red Blood Count 5.24 10^6/uL (4.1-5.3); Red Cell Distribution Width 13.5 % (12.1-15.1); White Blood Count 7.8 10^3/uL (4.0-10.0)
[2019-12-16 21:00] LABS: Lactic Sepsis W/Reflex 1.3 mmol/L (0.5-2.2)
[2019-12-16 21:03] LABS: Influenza A by IFA Negative (Negative); Influenza B by IFA Negative (Negative)
[2019-12-16 21:03] LABS: SARS Covid-2 Antigen Positive (Negative)
[2019-12-16 21:04] LABS: Troponin(5th) Baseline 15 ng/L (0-10)
[2019-12-16 21:27] LABS: INR 0.91 (0.8-1.2)
[2019-12-16 21:44] LABS: NT Pro B Type Natriuretic Pept 37 pg/mL (0-125); Procalcitonin 0.09 ng/mL (0-0.5)
[2019-12-16 21:45] VITALS: BP 174/94; PULSE 97; RESP 21; O2SAT 93
[2019-12-16 21:55] LABS: Alanine Aminotransferase 16 U/L (0-33); Albumin Level 3.3 g/dL (3.5-5.2); Alkaline Phosphatase 88 IU/L (35-105); Anion Gap 22.6 (5-19); Aspartate Amino Transferase 23 U/L (0-32); Blood Urea Nitrogen 16 mg/dL (8-23); C Reactive Protein 149.1 mg/L (0.0-4.9); Carbon Dioxide 19 mmol/L (22-29); Chloride 91 mmol/L (98-107); Creatine Phosphokinase 22 U/L (26-192); Globulin 3.1 g/dL (1.3-4.6); Glomerular Filtration Rate 100.6 mL/min (90-130); Glucose 416 mg/dL (65-115); Lactate Dehydrogenase 168 U/L (135-214); Magnesium 1.8 mg/dL (1.7-2.3); Osmolality Calculated 285 mOsm/kg (285-295); Potassium 4.6 mmol/L (3.5-5.1); Sodium 128 mmol/L (136-145); Total Bilirubin 0.4 mg/dL (0.15-1.2); Total Protein 6.4 g/dL (6.6-8.7)
--- NOTE | 2019-12-16 22:06 | ECG_ITS ---
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 Measurements Intervals [place] Rate: 97 P: 73 GA: 202 QRS: 76 QRSD: 85 T: 89 QT: 361 QTc: 459 Interpretive Statements SINUS RHYTHM POSSIBLE RIGHT ATRIAL ENLARGEMENT [0.25mV P WAVE] POSSIBLE LEFT ATRIAL ENLARGEMENT [-0.1mV P WAVE IN V1/V2] NONSPECIFIC T-WAVE ABNORMALITY Compared to ECG 12/16/2019 20:19:59 T-wave abnormality now present ST (T wave) deviation no longer present Electronically Signed On 12-17-2019 22:14:53 CDT by Serenity Sebastian M.D. [id number]
[2019-12-16 22:17] LABS: Ketone (Acetest) Serum Positive (Negative)
[2019-12-16 22:18] LABS: ABG PCO2 28.5 mmHg (35-45); ABG PH Result 7.44 (7.35-7.45); Arterial Blood Gas Hematocrit 43.2 % (37-47); Base Excess ABG -3.5 mmol/L (-2.0-2.0); Blood Gas Operator Identificat HARKR; Blood Gas Sample Site Brachial, left; Blood Gas Sample Type Arterial; HCO3 ABG 19.4 mmol/L (22-26); Oxygen Device ROOM AIR; PO2 ABG 54.8 mmHg (80.0-100.0)
[2019-12-16] MEDS: sodium chloride 0.9% 1,000 ML 999 ML IV ×2 (22:26→23:59)
[2019-12-16 22:59] LABS: Troponin 5 2HR 13.66 ng/L (0-10)
[2019-12-16 23:08] LABS: Troponin 5 2HR Delta -1.34 ABS# (0-10)
[2019-12-16 23:11] LABS: Estmated Average Glucose 329; Hemoglobin A1C 13.1 % (4.0-6.0)
[2019-12-17] LABS: Glucose Point of Care 295 mg/dL (70-110)
[2019-12-17 00:27] LABS: Glucose Point of Care 272 mg/dL (70-110)
[2019-12-17] MEDS: insulin regular-human 100 units/1 mL 4 UNIT IVP (00:42)
[2019-12-17 00:54] LABS: Anion Gap 16.5 (5-19); Blood Urea Nitrogen 12 mg/dL (8-23); Calcium 7.7 mg/dL (8.5-10.5); Carbon Dioxide 18 mmol/L (22-29); Chloride 100 mmol/L (98-107); Glomerular Filtration Rate 100.6 mL/min (90-130); Glucose 292 mg/dL (65-115); Osmolality Calculated 283 mOsm/kg (285-295); Potassium 3.5 mmol/L (3.5-5.1); Sodium 131 mmol/L (136-145)
[2019-12-17 01:31] LABS: Glucose Point of Care 249 mg/dL (70-110)
[2019-12-17 02:02] VITALS: BP 162/83; PULSE 68; RESP 18; O2SAT 99
== END 2019-12-17 02:04 | disposition home or self-care (01) ==
PROVIDERS: Family Medicine; Emergency Provider Emergency Medicine; PCP Internal Medicine
DX: U07.1 COVID-19 (principal); E11.10 Type 2 diabetes mellitus with ketoacidosis without coma; Z79.84 Long term (current) use of oral hypoglycemic drugs
CPT/HCPCS: 12345; 36416; 36600; 70450; 71045; 80048; 80053; 82009; 82550; 82803; 82962; 83036; 83605; 83615; 83735; 83880; 84145; 84484; 85025; 85378; 85610; 86140; 87426; 87804; 93005; 96361; 96365; 96366; 96375; 99283; 99284; J1815; J7030

== ENCOUNTER → 2020-02-29 15:49 | Outpatient (BNVA) | payer MEDICARE, MEDICAID, SELFPAY | PROVIDERS: PCP Internal Medicine; Visit Provider Internal Medicine | DX: E11.9 Type 2 diabetes mellitus without complications (principal); L21.9 Seborrheic dermatitis, unspecified; I10 Essential (primary) hypertension; G47.33 Obstructive sleep apnea (adult) (pediatric); U07.1 COVID-19 | CPT/HCPCS: 80053; 80061; 82607; 82746; 83036; 83550; 84443; 85025 ==

== ENCOUNTER 2020-05-19 09:53 | Inpatient (IN) | payer MEDICARE, MEDICAID, SELFPAY ==
[2020-05-19] VITALS (91 sets, daily range): BP systolic 106–217; BP diastolic 71–124; PULSE 69–149; RESP 0–29; TEMP 36.6–37.1; O2SAT 92–99; BMI 22.7
--- NOTE | 2020-05-19 10:07 | ECG_ITS ---
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 Measurements Intervals [place] Rate: 89 P: 63 MN: 192 QRS: 36 QRSD: 85 T: 123 QT: 373 QTc: 456 Interpretive Statements SINUS RHYTHM POSSIBLE LEFT ATRIAL ENLARGEMENT [-0.1mV P WAVE IN V1/V2] NONSPECIFIC ST & T-WAVE ABNORMALITY Compared to ECG 12/16/2019 22:14:09 No significant changes Electronically Signed On 05-19-2020 13:11:09 CDT by El Duncan M.D. [id number] f
--- NOTE | 2020-05-19 10:07 | CTR_ITS ---
PROCEDURE INFORMATION: Exam: CT Head Without Contrast Exam date and time: 05/19/2020 10:07 AM Age: 65 years old Clinical indication: Other: CVA facial droop; Additional info: Symptoms of acute stroke TECHNIQUE: Imaging protocol: Computed tomography of the head without contrast. Radiation optimization: All CT scans at this facility use at least one of these dose optimization techniques: automated exposure control; mA and/or kV adjustment per patient size (includes targeted exams where dose is matched to clinical indication); or iterative reconstruction. Other technique: STROKE PROTOCOL was implemented. COMPARISON: CT head wo con* [id number] 12/16/2019 10:37 PM RADIATION DOSE METRICS: Total DLP (mGy-cm): 1275.24 FINDINGS: Brain: There is moderate generalized chronic atrophy. There is patchy decreased white matter density which indicates chronic small vessel white matter ischemia. There is stable old infarct and encephalomalacia in the posterior limb of the left internal capsule with some extension into the left thalamus and cerebral peduncle. Small lacunar infarcts are seen in the left thalamus and right basal ganglia. No intracranial hemorrhage, edema or other acute abnormalities are seen in the brain. There is no mass effect or midline shift. Cerebral ventricles: No ventriculomegaly. Bones/joints: Unremarkable. No acute fracture. Paranasal sinuses: Visualized sinuses are unremarkable. No fluid levels. Mastoid air cells: Visualized mastoid air cells are well aerated. Soft tissues: Unremarkable. CT/CT head wo con* [id number] IMPRESSION: 1. No acute intracranial abnormality. 2. Moderate chronic atrophy with chronic white matter ischemic changes. 3. Old infarcts in the left posterior limb of the internal capsule, thalamus and basal ganglia. ASSESSMENT: ASPECTS (D Lo Stroke Program Early CT Score) is 10. Radiation Dose CTDIVOL = (mGy): DLP = 1275.24 (mGy-cm)
--- NOTE | 2020-05-19 10:08 | ED_ITS ---
HPI - Neuro Symptoms/Deficit General: Chief Complaint: Neuro Symptoms/Deficit Stated Complaint: STROKE SYMPTOMS Time Seen by Provider: 05/19/20 09:58 History of Present Illness: HPI Narrative: 65-year-old female presents emergency room with worsening right-sided droop per the daughter. She was last known well at 10 PM last night presents around 10 PM this morning. She has a history of previous stroke and is diabetic and history of hypertension as well. Patient only speaks Nigerien and the daughter translates. She will follow simple commands. Onset (ago): hour(s) (~12) Timing confirmed by: family member Location: speech and right face History of same: Yes Severity: mild Quality: weak Relieving factors: none Exacerbating factors: none On Anticoagulants: No Associated symptoms: Reports chest pain; Deny cough, diaphoresis, fevers/chills, headache(s), anorexia, malaise, nausea, seizures, short of breath, syncope, tingling, vertigo, vomiting or weakness Review of Systems Const: Denies: malaise or diaphoresis ENMT: Denies: throat pain, ear or mastoid pain, nasal discharge or nasal congestion Card: Reports: chest pain; Denies: syncope Resp: Denies: dyspnea, productive cough or non-productive cough GI: Denies: nausea or vomiting : Denies: flank pain, difficulty voiding, dysuria, urinary frequency or urinary urgency Skin/Breast: Denies: rash or pruritus Neuro: Denies: headache(s) or vertigo PFS ED PFSH: Medical History ARABELLA (obstructive sleep apnea) Social History Smoking and tobacco status: never smoked Alcohol intake: never Adopted: No Marital status: Number of children: 7 service: No History of recent travel: No NIH stroke score NIHSS: Level Of Consciousness - 1a: 0 Level Of Consciousness Questions - 1b: Both Correct Level Of Consciousness Commands - 1c: Both Correct Best Gaze - 2: Normal Visual Main - 3: No Visual Loss Facial Palsy - 4: Partial Paralysis Motor Arm Right - 5: No Effort Against [place] Motor Arm Left - 5: No Drift Motor Leg Right - 6: No Effort Against [place] Motor Leg Left - 6: No Drift Limb Ataxia - 7: Present In Two Limbs Sensory - 8: Mild To Moderate Loss Best Language - 9: No Aphasia Dysarthia - 10: Normal Extinction And Inattention - 11: 0 Score: Total Score: 11 Physical Exam Const: COMMON NORMALS: no acute distress GENERAL APPEARANCE: cooperative and comfortable HENMT: COMMON NORMALS: normocephalic, atraumatic and hearing grossly normal bilaterally HEAD & SCALP: normocephalic and atraumatic Neck/C-Spine: COMMON NORMALS: no JVD Lymph: LYMPHATIC: no lymphadenopathy noted and no lymphedema noted Resp: COMMON NORMALS: normal respiratory effort, No retractions, No use of accessory muscles and clear to auscultation bilaterally AUSCULTATION: clear to auscultation bilaterally Cardio: COMMON NORMALS: no JVD, regular rate, regular rhythm and No murmurs present (Cardio) RATE: regular rate RHYTHM: regular rhythm GI: COMMON NORMALS: Soft to palpation and No hepatosplenomegaly present AUSCULTATION: Yes normoactive bowel sounds PALPATION: Yes Soft to palpation, No Tenderness to palpation present (GI), No Guarding due to palpation present (GI) and Yes No hepatosplenomegaly present Extremity: COMMON NORMALS: normal to inspection, capillary refill normal, no clubbing, cyanosis or edema, no calf tenderness and no pedal edema Skin: COMMON NORMALS: no rashes or lesions noted GENERAL SKIN EXAM: no rashes or lesions noted Course Vital Signs: Vital signs: Vital Signs Temperature 97.8 F 05/19/20 09:58 Pulse Rate 85 05/19/20 11:23 Respiratory Rate 14 05/19/20 11:23 Blood Pressure 217/118 05/19/20 11:23 Pulse Oximetry 95 05/19/20 11:23 MDM - Neuro Symptoms/Deficit MDM Narrative: Medical decision making narrative: Stroke score is 11 however the majority of her's points are from prior existing deficits from her previous stroke. CTA shows vertebral artery stenosis and some carotid stenosis see the report. Nothing acute on the head CT she is having accelerated hypertension we will go ahead and admit her on nicardipine drip Dr. Asencio will be attending patient will go to the ICU. She also has a mild cystitis which she was given Rocephin for. Lab Data: Labs: Lab Results 05/19/20 05/19/20 05/19/20 Range/Units 10:10 10:30 10:30 WBC Cancelled Corrected WBC Cancelled RBC Cancelled Hgb Cancelled Hct Cancelled MCV Cancelled MCH Cancelled MCHC Cancelled RDW Cancelled Plt Count Cancelled MPV Cancelled Gran % Cancelled Neut % (Auto) Cancelled Lymph % (Auto) Cancelled [place] % (Auto) Cancelled Eos % (Auto) Cancelled Baso % (Auto) Cancelled Neut # (Auto) Cancelled Lymph # (Auto) Cancelled [place] # (Auto) Cancelled Eos # (Auto) Cancelled Baso # (Auto) Cancelled Absolute Gran (aut o) Cancelled Nucleated RBC % (a uto) Cancelled Nucleated RBCs # Cancelled PT 13.80 (12.1-14.9) SECO NDS INR 1.03 (0.8-1.2) APTT 17.9 L (23.9-36.7) SECO NDS Sodium (136-145) mmol/L Potassium (3.5-5.1) mmol/L Chloride (98-107) mmol/L Carbon Dioxide (22-29) mmol/L Anion Gap (5-19) BUN (8-23) mg/dL Creatinine (0.5-0.9) mg/dL GFR Calculation (90-130) mL/min Glucose (65-115) mg/dL POC Glucose 258 H (70-110) mg/dL Calculated Osmolal ity (285-295) mOsm/k g Calcium (8.5-10.5) mg/dL Total Bilirubin (0.15-1.2) mg/dL AST (0-32) U/L ALT (0-33) U/L Alkaline Phosphata se (35-105) IU/L Troponin T Baselin e (0-10) ng/L Total Protein (6.6-8.7) g/dL Albumin (3.5-5.2) g/dL Globulin (1.3-4.6) g/dL Urine Color (Yellow) Urine Appearance (CLEAR) Urine pH (5-7) Ur Specific Gravit y (1.005-1.030) Urine Protein (Negative) Urine Glucose (UA) (Normal) Urine Ketones (Negative) Urine Blood (Negative) Urine Nitrate (Negative) Urine Bilirubin (Negative) Urine Urobilinogen (Negative) mg/dL Ur Leukocyte Yadira ase (Negative) Urine RBC (0-2) /hpf Urine WBC (0-5) /hpf Ur Squamous Epith Cells (0-5) /hpf Ur Transition Epit h Cell /hpf Amorphous Sediment Urine Bacteria (NONE) /hpf Urine Mucus /hpf Urine Opiates Scre en (Negative) ng/mL Ur Barbiturates Sc reen (Negative) ng/mL Ur Phencyclidine S crn (Negative) ng/mL Ur Amphetamines Sc reen (Negative) ng/mL U Benzodiazepines Scrn (Negative) ng/mL Urine Cocaine Scre en (Negative) ng/mL U Marijuana (THC) Screen (Negative) ng/mL 05/19/20 05/19/20 05/19/20 Range/Units 10:30 10:30 10:56 WBC Corrected WBC RBC Hgb Hct MCV MCH MCHC RDW Plt Count MPV Gran % Neut % (Auto) Lymph % (Auto) [place] % (Auto) Eos % (Auto) Baso % (Auto) Neut # (Auto) Lymph # (Auto) [place] # (Auto) Eos # (Auto) Baso # (Auto) Absolute Gran (aut o) Nucleated RBC % (a uto) Nucleated RBCs # PT (12.1-14.9) SECO NDS INR (0.8-1.2) APTT (23.9-36.7) SECO NDS Sodium 136 (136-145) mmol/L Potassium 4.3 (3.5-5.1) mmol/L Chloride 101 (98-107) mmol/L Carbon Dioxide 24 (22-29) mmol/L Anion Gap 15.3 (5-19) BUN 11 (8-23) mg/dL Creatinine 0.4 L (0.5-0.9) mg/dL GFR Calculation 160.2 H (90-130) mL/min Glucose 215 H (65-115) mg/dL POC Glucose (70-110) mg/dL Calculated Osmolal ity 288 (285-295) mOsm/k g Calcium 8.7 (8.5-10.5) mg/dL Total Bilirubin 1.3 H (0.15-1.2) mg/dL AST 15 (0-32) U/L ALT 11 (0-33) U/L Alkaline Phosphata se 79 (35-105) IU/L Troponin T Baselin e 14 H (0-10) ng/L Total Protein 6.8 (6.6-8.7) g/dL Albumin 3.9 (3.5-5.2) g/dL Globulin 2.9 (1.3-4.6) g/dL Urine Color Yellow (Yellow) Urine Appearance Hazy A (CLEAR) Urine pH 6 (5-7) Ur Specific Gravit y 1.020 (1.005-1.030) Urine Protein Trace (Negative) Urine Glucose (UA) 1+ (Normal) Urine Ketones 1+ H (Negative) Urine Blood Neg (Negative) Urine Nitrate Positive H (Negative) Urine Bilirubin Neg (Negative) Urine Urobilinogen Norm (Negative) mg/dL Ur Leukocyte Yadira ase 1+ H (Negative) Urine RBC None (0-2) /hpf Urine WBC 25-40 H (0-5) /hpf Ur Squamous Epith Cells 15-25 H (0-5) /hpf Ur Transition Epit h Cell 5-10 /hpf Amorphous Sediment Not Reportable Urine Bacteria 4+ H (NONE) /hpf Urine Mucus 1+ /hpf Urine Opiates Scre en (Negative) ng/mL Ur Barbiturates Sc reen (Negative) ng/mL Ur Phencyclidine S crn (Negative) ng/mL Ur Amphetamines Sc reen (Negative) ng/mL U Benzodiazepines Scrn (Negative) ng/mL Urine Cocaine Scre en (Negative) ng/mL U Marijuana (THC) Screen (Negative) ng/mL 05/19/20 05/19/20 Range/Units 10:56 11:15 WBC 7.9 Corrected WBC RBC 5.33 H Hgb 14.6 Hct 44.4 MCV 83.3 MCH 27.4 L MCHC 32.9 RDW 13.6 Plt Count 272 MPV 10.3 Gran % Neut % (Auto) 60.3 Lymph % (Auto) 30.4 [place] % (Auto) 7.3 Eos % (Auto) 1.5 Baso % (Auto) 0.4 Neut # (Auto) 4.74 Lymph # (Auto) 2.4 [place] # (Auto) 0.6 Eos # (Auto) 0.1 Baso # (Auto) 0.0 Absolute Gran (aut o) Nucleated RBC % (a uto) 0 Nucleated RBCs # 0.0 PT (12.1-14.9) SECO NDS INR (0.8-1.2) APTT (23.9-36.7) SECO NDS Sodium (136-145) mmol/L Potassium (3.5-5.1) mmol/L Chloride (98-107) mmol/L Carbon Dioxide (22-29) mmol/L Anion Gap (5-19) BUN (8-23) mg/dL Creatinine (0.5-0.9) mg/dL GFR Calculation (90-130) mL/min Glucose (65-115) mg/dL POC Glucose (70-110) mg/dL Calculated Osmolal ity (285-295) mOsm/k g Calcium (8.5-10.5) mg/dL Total Bilirubin (0.15-1.2) mg/dL AST (0-32) U/L ALT (0-33) U/L Alkaline Phosphata se (35-105) IU/L Troponin T Baselin e (0-10) ng/L Total Protein (6.6-8.7) g/dL Albumin (3.5-5.2) g/dL Globulin (1.3-4.6) g/dL Urine Color (Yellow) Urine Appearance (CLEAR) Urine pH (5-7) Ur Specific Gravit y (1.005-1.030) Urine Protein (Negative) Urine Glucose (UA) (Normal) Urine Ketones (Negative) Urine Blood (Negative) Urine Nitrate (Negative) Urine Bilirubin (Negative) Urine Urobilinogen (Negative) mg/dL Ur Leukocyte Yadira ase (Negative) Urine RBC (0-2) /hpf Urine WBC (0-5) /hpf Ur Squamous Epith Cells (0-5) /hpf Ur Transition Epit h Cell /hpf Amorphous Sediment Urine Bacteria (NONE) /hpf Urine Mucus /hpf Urine Opiates Scre en Negative (Negative) ng/mL Ur Barbiturates Sc reen Negative (Negative) ng/mL Ur Phencyclidine S crn Negative (Negative) ng/mL Ur Amphetamines Sc reen Negative (Negative) ng/mL U Benzodiazepines Scrn Negative (Negative) ng/mL Urine Cocaine Scre en Negative (Negative) ng/mL U Marijuana (THC) Screen Negative (Negative) ng/mL Discharge Plan Discharge Patient Disposition: Admitted As Inpatient Clinical Impression: Accelerated essential hypertension, DM2 (diabetes mellitus, type 2), Essential hypertension, Hyperlipidemia, Cerebrovascular accident, Cystitis Condition: Stable Coding Level of Care Code ED Distribution Analyst for Chg Fwd Exam Comprehensive
[2020-05-19 10:13] LABS: Glucose Point of Care 258 mg/dL (70-110)
--- NOTE | 2020-05-19 10:18 | PC.NURSE ---
Pt in CT
[2020-05-19] MEDS: ondansetron 2 mg/ML SDV 2 mL 4 MG IVP ×2 (10:50→23:25)
[2020-05-19 11:13] LABS: INR 1.03 (0.8-1.2); Partial Thromboplastin Time 17.9 SECONDS (23.9-36.7)
--- NOTE | 2020-05-19 11:19 | CTR_ITS ---
PROCEDURE INFORMATION: Exam: CT Angiography Head With Contrast Exam date and time: 05/19/2020 11:30 AM Age: 65 years old Clinical indication: Cognitive deficit; Altered mental status; Additional info: CVA TECHNIQUE: Imaging protocol: Computed tomography angiography of the head with intravenous contrast. 3D rendering (Not supervised by radiologist): MIP and/or 3D reconstructed images were created by the technologist. Radiation optimization: All CT scans at this facility use at least one of these dose optimization techniques: automated exposure control; mA and/or kV adjustment per patient size (includes targeted exams where dose is matched to clinical indication); or iterative reconstruction. Contrast material: OMNIPAQUE 350; Contrast volume: 95 ml; Contrast route: INTRAVENOUS (IV); COMPARISON: CTA Head/Neck [id number] 02/06/2017 2:23 PM RADIATION DOSE METRICS: Total DLP (mGy-cm): 2288.81 FINDINGS: ANTERIOR CIRCULATION: Right internal carotid artery: There is prominent calcification of the right internal carotid siphon with severe stenosis. Right middle cerebral artery: Unremarkable. No occlusion or significant stenosis. No aneurysm. Right anterior cerebral artery: Unremarkable. No occlusion or significant stenosis. No aneurysm. Left internal carotid artery: There is prominent calcification of the left internal carotid siphon with severe stenosis. Left middle cerebral artery: Unremarkable. No occlusion or significant stenosis. No aneurysm. Left anterior cerebral artery: Unremarkable. No occlusion or significant stenosis. No aneurysm. POSTERIOR CIRCULATION: Right vertebral artery: Unremarkable. No occlusion or significant stenosis. No aneurysm. Left vertebral artery: Unremarkable. No occlusion or significant stenosis. No aneurysm. Basilar artery: Unremarkable. No occlusion or significant stenosis. No aneurysm. Right posterior cerebral artery: Unremarkable. No occlusion or significant stenosis. No aneurysm. Left posterior cerebral artery: Unremarkable. No occlusion or significant stenosis. No aneurysm. Brain: No definite mass, mass effect, or midline shift. Cerebral ventricles: No ventriculomegaly. Bones/joints: Unremarkable. No acute fracture. Soft tissues: Unremarkable. IMPRESSION: 1. Prominent calcification of the carotid siphons bilaterally with severe stenoses. 2. No large vessel occlusions are seen in the head. PROCEDURE INFORMATION: Exam: CT Angiography Neck With Contrast Exam date and time: 05/19/2020 11:30 AM Age: 65 years old Clinical indication: Cognitive deficit; Altered mental status; Additional info: CVA TECHNIQUE: Imaging protocol: Computed tomography angiography of the neck with intravenous contrast. 3D rendering (Not supervised by radiologist): MIP and/or 3D reconstructed images were created by the technologist. Radiation optimization: All CT scans at this facility use at least one of these dose optimization techniques: automated exposure control; mA and/or kV adjustment per patient size (includes targeted exams where dose is matched to clinical indication); or iterative reconstruction. Contrast material: OMNIPAQUE 350; Contrast volume: 95 ml; Contrast route: INTRAVENOUS (IV); COMPARISON: CTA Head/Neck [id number] 02/06/2017 2:23 PM RADIATION DOSE METRICS: Total DLP (mGy-cm): 2288.81 FINDINGS: Right common carotid artery: There is calcified plaque in the distal right common carotid artery just prior to the bifurcation with mild less than 50% stenosis.. No dissection or occlusion. Right internal carotid artery: There is calcified atherosclerotic plaque at the origin of the right internal carotid artery with moderate, 50-69% stenosis. No dissection or occlusion. Right external carotid artery: No occlusion or stenosis of the origin. Right vertebral artery: Multiple calcified plaques are present in the right vertebral artery there is a focal severe stenosis in the right vertebral artery at the C3-C4 level.. No dissection or occlusion. Left common carotid artery: There is calcified plaque in the distal left common carotid artery prior to the bifurcation with mild less than 50% stenosis.. No dissection or occlusion. Left internal carotid artery: There is calcified atherosclerotic plaque at the origin of the left internal carotid artery with mild less than 50% stenosis. No dissection or occlusion. Left external carotid artery: No occlusion or stenosis of the origin. Left vertebral artery: Multiple calcified plaques are present in the left vertebral artery with mild less than 50% stenosis. No dissection or occlusion. Bones/joints: No acute fracture. Soft tissues: Normal. No significant soft tissue swelling. CT/CT angio headneck* [id number] IMPRESSION: 1. Moderate, 50-69% stenosis at the origin of the right internal carotid artery. 2. Mild less than 50% stenosis at the origin of the left internal carotid artery. 3. Bilateral mild distal common carotid artery stenoses. 4. Severe stenosis in the right vertebral artery the C3-C4 level. 5. Multiple mild less than 50% stenosis in the left vertebral artery. REFERENCES: NASCET CRITERIA. The degree of internal carotid artery stenosis is based on NASCET criteria. Normal is no stenosis. Mild is less than 50% stenosis. Moderate is 50-69% stenosis. Severe is 70% to 99% stenosis. Total occlusion is no detectable patent lumen. Radiation Dose CTDIVOL = (mGy): DLP = 2288.81~2288.81 (mGy-cm)
[2020-05-19 11:20] LABS: Alanine Aminotransferase 11 U/L (0-33); Albumin Level 3.9 g/dL (3.5-5.2); Alkaline Phosphatase 79 IU/L (35-105); Blood Urea Nitrogen 11 mg/dL (8-23); Calcium 8.7 mg/dL (8.5-10.5); Carbon Dioxide 24 mmol/L (22-29); Chloride 101 mmol/L (98-107); Globulin 2.9 g/dL (1.3-4.6); Glomerular Filtration Rate 160.2 mL/min (90-130); Glucose 215 mg/dL (65-115); Osmolality Calculated 288 mOsm/kg (285-295); Sodium 136 mmol/L (136-145); Total Bilirubin 1.3 mg/dL (0.15-1.2); Total Protein 6.8 g/dL (6.6-8.7)
[2020-05-19 11:21] LABS: Basophils % 0.4 %; Eosinophils # 0.1 10^3/uL (0.0-0.8); Eosinophils % 1.5 %; Hematocrit 44.4 % (37.0-47.0); Hemoglobin 14.6 g/dL (11.5-15.3); Lymphocytes # 2.4 10^3/uL (0.8-4.8); Lymphocytes % 30.4 %; Mean Corpuscular HGB Conc 32.9 g/dL (30.0-36.0); Mean Corpuscular Hemoglobin 27.4 pg (28.0-34.0); Mean Corpuscular Volume 83.3 fL (81-99); Mean Platelet Volume 10.3 fL (7.4-10.4); Monocytes # 0.6 10^3/uL (0.2-0.9); Monocytes % 7.3 %; Neutrophils # 4.74 10^3/uL (1.8-7.7); Neutrophils % 60.3 %; Nucleated Red Blood Cells % 0 %; Platelet Count 272 10^3/cmm (130-400); Red Blood Count 5.33 10^6/uL (4.1-5.3); Red Cell Distribution Width 13.6 % (12.1-15.1); White Blood Count 7.9 10^3/uL (4.0-10.0)
[2020-05-19 11:21] LABS: Troponin(5th) Baseline 14 ng/L (0-10)
[2020-05-19 11:24] LABS: Anion Gap 15.3 (5-19)
[2020-05-19 11:25] LABS: Aspartate Amino Transferase 15 U/L (0-32); Potassium 4.3 mmol/L (3.5-5.1)
--- NOTE | 2020-05-19 11:43 | PC.PHAR ---
PTS FAMILY HAD MED LIST FOR THE PT-PTS FAMILY STATES THE PT IS STILL TAKING GLIMEPIRIDE 4MG PO DAILY EXT MED HISTORY SHOWS LAST FILLED ON 03/22/20 90D/S-AUDIT ON MED LIST SHOWS MEDICATION WAS DCED ON 04/19/20 14:[address] SANCHEZ PTS FAMILY STATES THE PT IS STILL TAKING-PTS FAMILY STATES THE OTC MEDS ENTERED ARE JUST TAKEN PRN
[2020-05-19 11:46] LABS: Amphetamines Screen Urine Negative (Negative); Barbiturates Screen Urine Negative (Negative); Benzodiazepines Screen Urine Negative (Negative); Cocaine Screen Urine Negative (Negative); Opiate Screen Urine Negative (Negative); PCP Screen Urine Negative (Negative); THC Screen Urine Negative (Negative)
[2020-05-19 11:56] LABS: Add Urine Microscopic? YES; Bilirubin Urine Neg (Negative); Blood Urine Neg (Negative); Glucose Urine UA 1+ (Normal); Ketones Urine 1+ (Negative); Leukocyte Esterase Urine 1+ (Negative); Nitrate Urine Positive (Negative); Protein Urine Trace (Negative); Urine Appearance Hazy (CLEAR); Urine Color Yellow (Yellow); Urobilinogen Urine Norm (Negative); pH Urine 6 (5-7)
[2020-05-19 11:58] LABS: Mucus Urine 1+ /hpf; Squamous Epithelial Cell Urine 15-25 /hpf (0-5); WBC Urine 25-40 /hpf (0-5)
[2020-05-19] MEDS: iohexol 350 mg/mL 100 mL Btl IV (11:58)
[2020-05-19 11:59] LABS: Add Urine Culture? No; Bacteria Urine 4+ /hpf
--- NOTE | 2020-05-19 12:07 | ECG_ITS ---
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 Measurements Intervals Craig Rate: 96 P: 70 GA: 194 QRS: 41 QRSD: 84 T: 126 QT: 353 QTc: 447 Interpretive Statements SINUS RHYTHM POSSIBLE LEFT ATRIAL ENLARGEMENT [-0.1mV P WAVE IN V1/V2] NONSPECIFIC ST & T-WAVE ABNORMALITY Compared to ECG 05/19/2020 10:06:31 No significant changes Electronically Signed On 05-19-2020 17:04:20 CDT by El Duncan M.D. [id number]
[2020-05-19] MEDS: nicardipine 20 MG/200 ML PREMIX 50 MG IV (12:53)
[2020-05-19] MEDS: LORazepam 2 mg/mL INJ 1 mL IVP (12:54)
[2020-05-19 13:14] LABS: Troponin 5 2HR 11.12 ng/L (0-10)
[2020-05-19 13:17] LABS: Troponin 5 2HR Delta -2.88 ABS# (0-10)
[2020-05-19] MEDS: cefTRIAXone 1,000 MG in sodium chloride 0.9% (plus) 50 ML 100 MG IV (13:17)
[2020-05-19] MEDS: nitroglycerin 1 gm/inch oint Pkt 1 INCH TOPICAL (13:28)
--- NOTE | 2020-05-19 15:26 | PC.NURSE ---
Pt was admitted to ICU at 1440 via bed and was resting with eyes closed. Daughter was present and was able to answer all admission questions since patient was sleeping and only speaks Tristanian. Patient grimaced and right sided facial droop was noted.
--- NOTE | 2020-05-19 17:42 | P.HP_ITS ---
Providers/Chief Complaint Admitting Physician: Urmila Asencio MD Primary Care Provider: Jesus Baig MD Chief Complaint: STROKE SYMPTOMS History of Present Illness Beverly Henley is a 65 year old female with a past medical history of hypertension, diabetes mellitus presented to the ER with chief complaints of slurred speech and aphasia that started at 8 AM while having breakfast. History is obtained by talking to the daughter that was at bedside. Patient was apparently last seen normal last night when she went to bed. When she woke up this morning and was having breakfast, her and then her daughter noted that she was slurring her words, asking repetitive questions and using words out of context. She has residual right-sided weakness, family members did not no [place] any new weakness apparently. She was brought into the ER. Due to unknown time of onset of symptoms she was not considered a candidate for TPA. CT head and CTA were performed which showed moderate 50 to 69% stenosis of the right ICA and less than 50% stenosis at the left ICA, mild bilateral distal common carotid artery stenosis and severe stenosis on the right vertebral artery at the C3-C4 level. Multiple mild less than 50% stenosis were noted in the left vertebral artery. Head CT showed no acute intracranial abnormality, moderate chronic atrophy with chronic white matter ischemic changes were noted. Old infarct in the left posterior limb of the internal capsule thalamic and basal g anglia were also noted. Patient has been given Ativan a few minutes ago as she was extremely anxious, she is asleep at the time of my examination and difficult to wake up, maintaining her airway. I am unable to assess her neurological status at this time. 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 Blood pressure at home has been uncontrolled, systolic ranges mostly in the 180s range. Patient does miss doses of aspirin quite frequently. Reportedly she takes rosuvastatin and her blood pressure medications regularly. Insulin was recently added to her diabetes regimen because of uncontrolled HbA1c. Over the past week patient had been complaining of generalized weakness thought to be attributed to UTI. Review of Systems General: Reports: ROS unobtainable due to mental status Medications/Allergies Home Medications Medication Instructions Recorded Confirmed Last Taken Type ascorbic acid (vitamin C) 500 mg 500 mg PO PRN 12/14/19 05/19/20 Unknown History capsule cholecalciferol (vitamin D3) 50 50 mcg PO PRN 12/14/19 05/19/20 Unknown History mcg (2,000 unit) capsule coenzyme Q10 50 mg capsule 50 mg PO PRN 12/14/19 05/19/20 Unknown History ferrous fumarate 324 mg (106 mg 324 mg PO PRN 12/14/19 05/19/20 Unknown History iron) tablet melatonin 5 mg tablet 5 - 10 mg PO PRN 12/14/19 05/19/20 Unknown History losartan 50 mg tablet 50 mg PO DAILY #90 tab 02/29/20 05/19/20 Unknown Rx rosuvastatin 10 mg tablet 10 mg PO DAILY #90 tab 03/22/20 05/19/20 Unknown Rx pen needle, diabetic 33 gauge x #100 ea 04/24/20 05/19/20 Unknown Rx Clearguard [employer] 1 cap PO PRN 05/19/20 05/19/20 Unknown History aspirin 325 mg PO PRN 05/19/20 05/19/20 Unknown History glimepiride See Rx Instructions .ROUTE .COMPLEX 05/19/20 05/19/20 Unknown History insulin degludec [Tresiba 30 unit SUBCUT BEDTIME 05/19/20 05/19/20 Unknown History FlexTouch U-200] metformin 1,000 mg PO BID 05/19/20 05/19/20 Unknown History triamcinolone acetonide 1 applic TOPICAL DAILY PRN 05/19/20 05/19/20 Unknown History Allergies Allergy/AdvReac Type Severity Reaction Status Date / Time codeine Allergy Unknown Verified 05/19/20 11:43 PFSH Acute PFSH: Medical History (Updated 05/19/20 @ 17:49 by Urmila Asencio MD) COVID-12 December 2019 CVA (cerebral vascular accident) Diabetes Hyperlipidemia Hypertension ARABELLA (obstructive sleep apnea) UTI (urinary tract infection) Family History (Updated 05/19/20 @ 17:46 by Urmila Asencio MD) Other CAD (coronary artery disease) Social History Smoking and tobacco status: never smoked Alcohol intake: never Adopted: No Marital status: Number of children: 7 service: No History of recent travel: No Vitals/I&O/Wt Last Vital Signs Temp 97.8 F 05/19/20 09:58 Pulse 100 05/19/20 17:10 Resp 21 H 05/19/20 16:25 BP 159/103 05/19/20 17:10 Pulse Ox 94 05/19/20 17:10 05/19/20 05/19/20 05/19/20 06:59 14:59 22:59 Intake Total 63.333 / 63.333 Balance 63.333 / 63.333 Weight last 48 hrs Weight 65.771 kg Physical Exam Narrative: EXAM NARRATIVE: GENERAL: Patient is currently asleep at the time of my examination, wakes up intermittently to calling name when called out by the daughter in [place] language, unable to assess as patient just received Ativan HEENT: Normocephalic, atraumatic, pupils bilaterally normal size normally reacting CHEST: Clear to auscultation bilaterally. [] CVS: S1, S2 normal. No murmur, rubs, gallops. Peripheral pulses palpable. [] ABDOMEN: Soft, nontender. Nondistended. Bowel sounds heard. [] NEUROVASCULAR: Asleep, just received Ativan, unable to perform a detailed exam EXTREMITIES: No edema. [] Data : 05/19/20 11:15 05/19/20 10:30 A&P Assessment and plan (1) Cerebrovascular accident: Patient signs and symptoms with CVA. Per discussion with ER physician when patient first presented, she had a worsening right-sided droop, aphasia and slurred speech. CT head and CTA findings as noted above. Continue aspirin, change dose from 325 mg daily to 81 mg p.o. daily, add Plavix 75 mg p.o. daily Takes rosuvastatin 10 mg daily at home, for now will use Lipitor 40 mg daily Will need outpatient follow-up with vascular surgery for her moderate internal carotid artery stenosis Telemetry monitoring to rule out any underlying arrhythmias an embolic stroke Echocardiogram Blood pressure upon admission noted to be sustained above 200 systolic, was started on nicardipine infusion in the ER, discontinued now that systolic blood pressure is at 160, allowing for permissive hypertension following CVA. Per daughter ablations blood pressure at home ranges between systolic 180 usually. Status: Acute (2) Cystitis: UA positive for nitrate, patient had been complaining of dysuria over the past week Urine culture taken and pending Empiric ceftriaxone in the interim Status: Acute (3) Essential hypertension: Hold off on blood pressure medications at this time to allow for permissive hypertension Status: Acute (4) DM2 (diabetes mellitus, type 2): Insulin sliding scale for now, Check HbA1c, lipid panel for risk stratification Status: Acute Attestations Medical Necessity Statement*: Acute CVA, hypertensive urgency, admitted for further monitoring and management Coding Level of Care Code 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
[2020-05-19 17:46] LABS: Troponin 5 6HR 11.23 ng/L (0-10)
[2020-05-19 17:50] LABS: Troponin 5 6HR Delta -2.77 ng/L (0-12)
[2020-05-19 19:22] LABS: Glucose Point of Care 203 mg/dL (70-110)
[2020-05-19] MEDS: enoxaparin 30 mg/0.3 mL Syringe SUBCUT (19:24)
[2020-05-19] MEDS: atorvastatin 40 mg Tablet 20 MG PO (21:17)
--- NOTE | 2020-05-19 21:33 | CTR_ITS ---
PROCEDURE INFORMATION: Exam: CT Head Without Contrast Exam date and time: 05/19/2020 9:42 PM Age: 65 years old Clinical indication: Speech disturbance; Unspecified; Additional info: New speech abnormality TECHNIQUE: Imaging protocol: Computed tomography of the head without contrast. Radiation optimization: All CT scans at this facility use at least one of these dose optimization techniques: automated exposure control; mA and/or kV adjustment per patient size (includes targeted exams where dose is matched to clinical indication); or iterative reconstruction. COMPARISON: 1. CT head wo con* [id number] 2020-05-19 10:[address] angio headneck* [id number] 2020-05-19 11:58 RADIATION DOSE METRICS: Total DLP (mGy-cm): 783.98 FINDINGS: Brain: Diffuse moderate cerebral age related volume loss. Moderate patchy low attenuation in the white matter compatible with moderate chronic small vessel ischemic disease. No midline shift, mass, fluid collection, or evidence of hemorrhage. Cerebral ventricles: Ventricular enlargement proportional to volume loss. Bones/joints: Unremarkable. No acute fracture. Paranasal sinuses: Visualized sinuses are unremarkable. No fluid levels. Mastoid air cells: Visualized mastoid air cells are well aerated. Vasculature: Coarse atherosclerotic calcifications in the vertebral and internal carotid arteries. Soft tissues: Unremarkable. CT/CT head wo con* [id number] IMPRESSION: Moderate involutional changes, no acute intracranial abnormality. Radiation Dose CTDIVOL = (mGy): DLP = 783.98 (mGy-cm)
[2020-05-19] MEDS: sodium chloride 0.9% 500 ML IV (22:03)
[2020-05-19 23:36] LABS: Glucose Point of Care 138 mg/dL (70-110)
[2020-05-19] MEDS: aspirin 300 mg Supp PR (23:37)
[2020-05-20] VITALS (38 sets, daily range): BP systolic 131–214; BP diastolic 81–112; PULSE 77–105; RESP 1–42; TEMP 36.4–36.6; O2SAT 93–97
--- NOTE | 2020-05-20 01:04 | PC.NURSE ---
2114 Pt daughter stated pt was having difficulty with her speak. the pt is speak Chinese so all translating is done through the daughter. daughter says pt is is using some words, but not everything she is saying is a word. Dr. Yanez contacted and new orders received for stat CT and NIH scale. pt became nauseated after traveling to [place] and zofran was given. pt did vomit about [address] yanez contacted when CT results available. pt was given ASA supp because she is having some difficulty swallowing a sip of water.
[2020-05-20 05:20] LABS: Basophils % 0.3 %; Eosinophils % 0.2 %; Hemoglobin 13.8 g/dL (11.5-15.3); Lymphocytes # 2.2 10^3/uL (0.8-4.8); Lymphocytes % 23.6 %; Mean Corpuscular HGB Conc 33.7 g/dL (30.0-36.0); Mean Corpuscular Hemoglobin 27.2 pg (28.0-34.0); Mean Corpuscular Volume 80.9 fL (81-99); Mean Platelet Volume 10.7 fL (7.4-10.4); Monocytes # 0.5 10^3/uL (0.2-0.9); Monocytes % 5.2 %; Neutrophils # 6.45 10^3/uL (1.8-7.7); Neutrophils % 70.4 %; Nucleated Red Blood Cells % 0 %; Platelet Count 263 10^3/cmm (130-400); Red Blood Count 5.07 10^6/uL (4.1-5.3); Red Cell Distribution Width 13.5 % (12.1-15.1); White Blood Count 9.2 10^3/uL (4.0-10.0)
[2020-05-20 05:58] LABS: Alanine Aminotransferase 11 U/L (0-33); Albumin Level 3.6 g/dL (3.5-5.2); Alkaline Phosphatase 73 IU/L (35-105); Anion Gap 15.8 (5-19); Aspartate Amino Transferase 9 U/L (0-32); Blood Urea Nitrogen 11 mg/dL (8-23); Calcium 8.3 mg/dL (8.5-10.5); Carbon Dioxide 23 mmol/L (22-29); Chloride 98 mmol/L (98-107); Chol HDL Ratio 2.47 mg/dL (0.0-4.40); Cholesterol 121 mg/dL (0-200); Globulin 3.3 g/dL (1.3-4.6); Glomerular Filtration Rate 123.8 mL/min (90-130); Glucose 214 mg/dL (65-115); HDL Cholesterol 49 mg/dL (60-100); LDL Cholesterol Calculated 60 mg/dL (50-129); LDL HDL Ratio 1.22 RATIO (0.00-3.22); Osmolality Calculated 282 mOsm/kg (285-295); Potassium 3.8 mmol/L (3.5-5.1); Sodium 133 mmol/L (136-145); Total Bilirubin 1.4 mg/dL (0.15-1.2); Total Protein 6.9 g/dL (6.6-8.7); Triglycerides 61 mg/dL (0-150)
--- NOTE | 2020-05-20 06:00 | USCV_ITS ---
Beverly Henley Age: 65 Gender: F : 1955 Exam Date: 05/20/2020 09:06 Ordering Phys: Urmila Asencio MD Technologist: Zoe Lynch [place] [facility] [place]: Acute CVA BP: 183 / 93 HR: 89 Rhythm: Sinus Technical Quality: Fair MEASUREMENTS (Male / Female) Normal Values 2D ECHO LV Diastolic Diameter PLAX 4.0 cm 4.2 - 5.9 / 3.9 - 5.3 cm LV Systolic Diameter PLAX 2.2 cm LV Chamber Size 3.1 cm IVS Diastolic Thickness 1.6 cm 0.6 - 1.0 / 0.6 - 0.9 cm IVS Systolic Thickness 2.1 cm LVPW Diastolic Thickness 0.8 cm 0.6 - 1.0 / 0.6 - 0.9 cm LVPW Systolic Thickness 1.4 cm RV Chamber Size 2.0 cm LVOT Diameter 2.0 cm LV Ejection Fraction 2D Teich 78.0 % LV Ejection Fraction MOD 2C 61.2 % LV Ejection Fraction 2C AL 65.6 % LA Diameter 2.4 cm LA Width 2.5 cm LA Height 4.5 cm RA Width 2.1 cm RA Height 3.9 cm Aorta at Sinotubular Diameter 2.3 cm M-MODE LV Diastolic Diameter MM 4.5 cm 4.2 - 5.9 / 3.9 - 5.3 cm LV Systolic Diameter MM 2.3 cm LV Ejection Fraction MM Teich 80.9 % IVS Diastolic Thickness MM 1.2 cm 0.6 - 1.0 / 0.6 - 0.9 cm IVS Systolic Thickness MM 1.8 cm LVPW Diastolic Thickness MM 1.7 cm 0.6 - 1.0 / 0.6 - 0.9 cm LVPW Systolic Thickness MM 1.8 cm Aortic Annulus Diameter 2.9 cm LA Ao Ratio MM 0.9 MV E Point Septal Separation 0.6 cm DOPPLER AV Peak Velocity 125.0 cm/s LVOT Peak Velocity 77.0 cm/s AV Area Cont Eq vti 2.0 cm squared AV Area Cont Eq pk 1.9 cm squared MV Area PHT 5.0 cm squared Mitral E to A Ratio 0.7 MV E' Velocity 30.5 cm/s Mitral E to MV E' Ratio 10.7 Mitral E to LV E' Lateral Ratio 10.7 Mitral E to LV E' Septal Ratio 10.9 TR Peak Velocity 198.0 cm/s TR Peak Gradient 15.7 mmHg TV Peak E Velocity 43.0 cm/s Right Atrial Pressure 3.0 mmHg Pulmonary Artery Systolic Pressu 18.7 mmHg PV Peak Velocity 82.0 cm/s RV Acceleration Time 0.1 s RV Ejection Time 0.2 s RV AcT/ET 0.3 FINDINGS Left Ventricle Normal left ventricular size, systolic function with no regional wall motion abnormalities. LV EF is 60-65%. Grade 1 diastolic dysfunction Right Ventricle The right ventricle is normal in size and function. Right Atrium The right atrium is normal in size. Left Atrium The left atrium is normal in size. Mitral Valve Mitral valve leaflets are mildly thickened without significant stenosis or prolapse. There is no mitral regurgitation. Aortic Valve Structurally normal aortic valve without significant sclerosis or stenosis. There is no aortic regurgitation. Tricuspid Valve Structurally normal tricuspid valve without significant stenosis. Mild tricuspid regurgitation. RVSP is 15-20mmHg Pulmonic Valve Structurally normal pulmonic valve without significant stenosis. There is no pulmonic regurgitation. Pericardium Normal pericardium without effusion. Aorta Normal ascending aorta dimension. CONCLUSIONS LV systolic function is normal with EF of 60-65% Grade 1 diastolic dysfunction No significant valvular heart disease noted. Mild tricuspid regurgitation is present Compared to prior echocardiogram from 02/06/2017, no significant changes are noted El Duncan MD (Electronically Signed) Final Date: 20 May 2020 16:55 S
[2020-05-20 06:01] LABS: Estmated Average Glucose 243; Hemoglobin A1C 10.1 % (4.0-6.0)
[2020-05-20 08:33] LABS: Glucose Point of Care 191 mg/dL (70-110)
[2020-05-20] MEDS: aspirin 81 mg EC Tablet PO (09:47)
[2020-05-20] MEDS: clopidogrel 75 mg Tablet PO (09:49)
[2020-05-20] MEDS: ondansetron 4 MG Tablet PO (10:02)
[2020-05-20] MEDS: sodium chloride 0.9% 1,000 ML 75 ML IV (10:47)
--- NOTE | 2020-05-20 10:49 | PM.PN ---
Subjective Subjective: Interval history: Overnight patient was noted to have return of her aphasia, slurred speech after having recovered during the evening. This morning patient daughter who is at bedside reports patient is back to baseline again. At the time of repeat symptoms, patient's blood pressure was noted to be systolic less than 120. Received 500 cc bolus after which blood pressure has been ranging above 1 30-1 40 systolic. Complaining of nausea and one episode of vomiting. CT head repeated overnight at 9:30 PM showed moderate involutional changes, no acute intracranial abnormality. Medications: Reviewed: Yes Vitals/I&O/Wt Last Vital Signs Temp 98.8 F 05/19/20 22:30 Pulse 92 05/20/20 08:00 Resp 42 H 05/20/20 02:35 BP 183/93 05/20/20 02:35 Pulse Ox 97 05/20/20 07:44 05/19/20 05/20/20 05/20/20 22:59 06:59 14:59 Intake Total 229.333 / 292.666 500 / 792.666 0 / 0 Output Total 300 / 300 600 / 900 450 / 450 Balance -70.667 / -7.334 -100 / -107.334 -450 / -450 Weight last 48 hrs Weight 65.771 kg Physical Exam Narrative: EXAM NARRATIVE: GEN: Awake, alert and oriented, no acute distress CVS: S1S2 N RS: CTA B/L Abd: Soft, nt/nd , bs+ TAPER AND FLOATER: Right-sided upper and lower extremity weakness, which is at baseline from stroke 3 years ago, no new focal motor deficits noted. Data : 05/20/20 04:28 05/20/20 04:28 A&P Assessment and plan (1) Cerebrovascular accident: Patient signs and symptoms with CVA. NIH SS was hard to assess upon admission but estimated to be at 11, confounded by residual right weakness from previous stroke [address] head with chronic atrophy and old infarcts in the left posterior limb of internal capsule thalamic and basal ganglia. CTA with moderate 50 to 69% stenosis at the origin of the right internal carotid artery, less than 50% stenosis at the origin of left ICA, severe stenosis of the right vertebral artery at the C3-C4 level. Continue aspirin 81 mg p.o. daily, added Plavix 75 mg p.o. daily Continue statin, lipid panel within range Overnight waxing and waning of symptoms noted, may represent a stroke in evolution. Repeat CT head did not show any acute changes. Given that patient has persisting nausea and vomiting with waxing and waning changes, will order MRI brain which will additionally evaluate for posterior circulation stroke. Telemetry monitoring without any underlying arrhythmia so far Echocardiogram taken and pending Allow for permissive hypertension, add normal saline at 75 cc an hour as maintenance fluids to maintain systolic blood pressure running cerebral perfusion. Status: Acute (2) Cystitis: UA positive for nitrate, patient had been complaining of dysuria over the past week Urine culture taken and pending Empiric ceftriaxone in the interim Status: Acute (3) Essential hypertension: Hold off on blood pressure medications at this time to allow for permissive hypertension Status: Acute (4) DM2 (diabetes mellitus, type 2): Insulin sliding scale for now, Hba1c 10, c/w uncontrolled DM Status: Acute Attestations Medical Necessity Statement*: Ongoing waxing and waning symptoms, persistent nausea, concern for stroke in evolution, maintain IVF as above, MRI in am Coding Level of Care Code 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
[2020-05-20] MEDS: cefTRIAXone 1,000 MG in sodium chloride 0.9% (plus) 50 ML 100 MG IV (11:31)
[2020-05-20 11:46] LABS: Glucose Point of Care 209 mg/dL (70-110)
--- NOTE | 2020-05-20 14:50 | PC.NURSE ---
no tellys available on floor
[2020-05-20 17:29] LABS: Glucose Point of Care 127 mg/dL (70-110)
[2020-05-20] MEDS: enoxaparin 30 mg/0.3 mL Syringe SUBCUT (17:46)
[2020-05-20 20:38] LABS: Glucose Point of Care 226 mg/dL (70-110)
[2020-05-20] MEDS: atorvastatin 40 mg Tablet PO (21:31)
[2020-05-21] VITALS: BP 147/79; PULSE 79; RESP 17; TEMP 36.6; O2SAT 95
[2020-05-21] MEDS: sodium chloride 0.9% 1,000 ML 75 ML IV (01:23)
[2020-05-21 04:00] VITALS: BP 177/82; PULSE 77; RESP 16; TEMP 36.4; O2SAT 98
[2020-05-21 06:39] LABS: Glucose Point of Care 186 mg/dL (70-110)
[2020-05-21 07:32] VITALS: BP 175/83; PULSE 68; RESP 17; TEMP 37; O2SAT 97
[2020-05-21] MEDS: aspirin 81 mg EC Tablet PO (09:18)
[2020-05-21] MEDS: clopidogrel 75 mg Tablet PO (09:19)
[2020-05-21 10:54] LABS: Glucose Point of Care 144 mg/dL (70-110)
--- NOTE | 2020-05-21 11:22 | PC.OT ---
OT attempted to see pt this morning for treatment session. Pt states that she is not feeling well. Pts daughter present in room interpreting what therapist needs/wants to do with pt. Pt declines stating not today . Daughter states that pt did not sleep well overnight. Therapist provided pt warm blankets and encouraged rest. Therapist explaining role of occupational therapy to daughter and pt and will attempt later again today if possible. ROSS Barros/Liliana DIALLO/Evelyn
[2020-05-21] MEDS: cefTRIAXone 1,000 MG in sodium chloride 0.9% (plus) 50 ML 100 MG IV (11:46)
[2020-05-21 12:00] VITALS: BP 166/88; PULSE 80; RESP 16; TEMP 36.6; O2SAT 97
--- NOTE | 2020-05-21 12:30 | MR_ITS ---
WS: [id number] MRI BRAIN WITHOUT CONTRAST HISTORY: CVA, concern for posterior circulation stroke COMPARISON: 02/07/[address] head 05/19/2020 TECHNIQUE: Diffusion imaging, multiplanar T1, T2 and FLAIR imaging obtained. No evidence for acute infarct or hemorrhage. Fischer-white matter differentiation is normal. Mild to moderate scattered microvascular ischemic disease. There is a small lacunar infarct which is remote in the LEFT basal ganglia. Ventricles and extra-axial spaces are normal. No inferior displacement of cerebellar tonsils. The sella turcica and pituitary gland are unremarkabl e. Posterior fossa is also unremarkable. Dural venous sinuses and [place] demonstrate no abnormality on this unenhanced studies. Paranasal sinuses: Clear. Mastoid air cells: Normal. Calvarium and scalp: Intact. MR/MR head wo con* [id number] IMPRESSION: 1. No evidence for an acute infarct or diffusion abnormality. 2. Mild to moderate chronic microvascular ischemic changes and a prior lacunar infarct LEFT basal ganglia.
--- NOTE | 2020-05-21 13:19 | PC.NURSE ---
patient back to room via stretcher and EMS transport from MRI, daughter at bedside, patient in good condition.
--- NOTE | 2020-05-21 15:21 | P.DS_ITS ---
Discharge Providers Date of Admission: 05/19/20 12:34 Date of Discharge: May 21, 2020 Attending Provider at Admission: Urmila Asencio MD Attending Provider at Discharge: Aime Dykes MD Primary Care Provider: Jesus Baig MD Diagnoses at Discharge Discharge Diagnosis (1) Cerebrovascular accident: Status: Acute Permanent problem details: H/O CVA (2) Cystitis: Status: Resolved (3) Essential hypertension: Status: Chronic (4) DM2 (diabetes mellitus, type 2): Status: Chronic Reason for Visit Reason for Visit: STROKE SYMPTOMS Hospital Course Hospital Course 65 year old female with a past medical history of hypertension, 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 History is obtained by talking to the daughter that was at bedside. Patient was apparently last seen normal last night when she went to bed. When she woke up this morning and was having breakfast, her and then her daughter noted that she was slurring her words, asking repetitive questions and using words out of context. She has residual right-sided weakness, family members did not notice any new weakness apparently. She was brought into the ER. Due to unknown time of onset of symptoms she was not considered a candidate for TPA. CT head and CTA were performed which showed moderate 50 to 69% stenosis of the right ICA and less than 50% stenosis at the left ICA, mild bilateral distal common carotid artery stenosis and severe stenosis on the right vertebral artery at the C3-C4 level. Multiple mild less than 50% stenosis were noted in the left vertebral artery. Head CT showed no acute intracranial abnormality, moderate chronic atrophy with chronic white matter ischemic changes were noted. Old infarct in the left posterior limb of the internal capsule thalamic and basal ganglia were also noted. She was admitted for the management of possible TIA/CVA. She was continued of aspirin 81 mg p.o. daily, added Plavix 75 mg p.o. daily, Continued on statin, lipid panel within range. 2D echo: LV systolic function is normal with EF of 60-65% Grade 1 diastolic dysfunction No significant valvular heart disease noted. Mild tricuspid regurgitation is present. MRI Brain without contrast : No evidence for an acute infarct or diffusion abnormality.Mild to moderate chronic microvascular ischemic changes and a prior lacunar infarct LEFT basal ganglia.No significant arrhthymia was noted on telemetry monitoring. Physical therapy was on board and continued with P/T at the time of discharge she was at her baseline neurological status with no new residual weakness.No aphasia or slurred speech.No problem with swallowing. She was also empirically treated for cystytis , UA positive for nitrate, patient had been complaining of dysuria over the past week she was kept on rochepin and is being discharged on levopfloxacin 500 mg po daily for additional 5 days. She responded well to the above medical management and is being discharged in stable condition. Sh will continue to follow with her PCP as outpatient. Physical Exam Narrative: EXAM NARRATIVE: GEN: Awake, alert and oriented, no acute distress CVS: S1S2 N RS: CTA B/L Abd: Soft, nt/nd , bs+ [facility] DIRECT[facility]: Right-sided upper and lower extremity weakness, which is at baseline from stroke 3 years ago, no new focal motor deficits noted. Discharge Data Data Completed and Pending: Completed Studies During Hospitalization Category Date Time Status CT angio headneck * 60316/05232 Stat Cat Scan 05/19/20 11:[address] head wo con* 7 0450 Stat Cat Scan 05/19/20 10:[address] head wo con* 7 0450 Stat Cat Scan 05/19/20 21:33 Completed MR head wo con* 7 0551 Routine MRI 05/21/20 12:30 Completed CV echo complete* 19409 Routine Ultrasound 05/20/20 06:00 Completed Pending at discharge Category Date Time Status Urine Culture Sta t Lab 05/19/20 19:45 Results Labs from last 24 hours 05/21/20 05/21/20 05/20/20 10:51 06:32 20:26 POC Glucose 144 H 186 H 226 H 05/20/20 16:59 POC Glucose 127 H Vitals: Last Vital Signs Temp 97.8 F 05/21/20 12:00 Pulse 80 05/21/20 12:00 Resp 16 05/21/20 12:00 BP 166/88 05/21/20 12:00 Pulse Ox 97 05/21/20 12:00 Discharge Plan Discharge Patient Disposition: Home Condition: Stable Prescriptions: New aspirin 81 mg tablet,delayed release (DR/EC) 81 mg PO DAILY Qty: 30 RF: 0 levofloxacin 500 mg tablet 500 mg PO DAILY 5 Days RF: 0 Plavix 75 mg tablet 75 mg PO DAILY Qty: 30 RF: 3 Continued ascorbic acid (vitamin C) 500 mg capsule 500 mg PO PRN RF: 0 cholecalciferol (vitamin D3) 50 mcg (2,000 unit) capsule 50 mcg PO PRN RF: 0 ferrous fumarate 324 mg (106 mg iron) tablet 324 mg PO PRN RF: 0 coenzyme Q10 [Co Q-10] 50 mg capsule 50 mg PO PRN RF: 0 melatonin 5 mg tablet 5 - 10 mg PO PRN RF: 0 losartan 50 mg tablet 50 mg PO DAILY Qty: 90 RF: 3 rosuvastatin 10 mg tablet 10 mg PO DAILY Qty: 90 RF: 3 (DME) pen needle, diabetic [Easy Comfort Pen [place]] 33 gauge x 5/32 needle See Rx Instructions .ROUTE .MEDSUPPLY Qty: 100 RF: 6 glimepiride 4 mg tablet See Rx Instructions .ROUTE .COMPLEX RF: 0 Clearguard [employer] 1 cap PO PRN RF: 0 triamcinolone acetonide 0.025 % cream 1 applic topical DAILY PRN (Reason: UNKNOWN) RF: 0 metformin 1,000 mg tablet 1,000 mg PO BID RF: 0 Tresiba FlexTouch U-200 200 unit/mL (3 mL) insulin pen 30 unit SUBCUT BEDTIME RF: 0 Discontinued aspirin 325 mg Tablet 325 mg PO PRN RF: 0 Discharge Orders: Discharge Order (Routine); Ordered 05/21/20 Ordered By: Aime Dykes Referrals: Jesus Baig MD [Primary Care Provider] - 06/13/20 11:15 am Discharge Diet: Diabetic Discharge Activity: Resume usual activity Patient Instructions: Self Care Measures After a Stroke (DC), Opioid Safety Discharge Attestations Time Spent in Discharge Care*: less than 30 min Specific Discharge Activities: educating patient, educating and/or supporting family/caregiver, discussing with case technician/social workers/dc planners, documenting/other paperwork and evaluating patient/reviewing data Status at Discharge: Cognitive status at discharge: cognitively intact , Behavioral status at discharge: cooperative , Functional status at discharge: uses cane/walker Overall status at discharge: patient is back to baseline Quality Metrics Clinical Quality Measures During this hospital stay, did patient experience: None Coding Level of Care Code Acute Chg FW DC note Diagnoses Cerebrovascular accident I63.9 Cystitis N30.90 Essential hypertension I10 DM2 (diabetes mellitus, type 2) E11.9
[2020-05-21 15:43] VITALS: BP 176/83; PULSE 85; RESP 17; TEMP 36.6; O2SAT 97
[2020-05-21 16:44] LABS: Glucose Point of Care 236 mg/dL (70-110)
--- NOTE | 2020-05-21 17:16 | PC.NURSE ---
Gave patient and daughter discharge instructions. All questions answered. IV catheter removed, tip intact. Patient tolerated well. Patient discharged at this time in the care of her family, in stable condition.
[2020-05-21 17:17] VITALS: BP 176/83; PULSE 85; RESP 17; TEMP 36.6; O2SAT 97
--- NOTE | 2020-05-23 08:56 | PC.NUTR ---
NUTR CONSULT: Consult received for stroke education. Pt has discharged. Will attempt contact by phone and offer education by mail.
== END 2020-05-21 17:18 | disposition home or self-care (01) | DRG 65 ==
LOC: ER 12:36 → ICU 13:04 → MEDSURG 05-20 13:06
PROVIDERS: Admitting Provider Student in an Organized Health Care Education/Training Program; Emergency Provider Family Medicine; PCP Internal Medicine; Visit Provider Internal Medicine
DX: I63.9 Cerebral infarction, unspecified (principal); I69.351 Hemiplegia and hemiparesis following cerebral infarction affecting right dominant side; N30.90 Cystitis, unspecified without hematuria; I10 Essential (primary) hypertension; E11.9 Type 2 diabetes mellitus without complications; R47.81 Slurred speech; R47.01 Aphasia; I65.23 Occlusion and stenosis of bilateral carotid arteries; E78.5 Hyperlipidemia, unspecified; G47.33 Obstructive sleep apnea (adult) (pediatric); Z79.84 Long term (current) use of oral hypoglycemic drugs; Z79.82 Long term (current) use of aspirin; Z79.899 Other long term (current) drug therapy; Z86.16 Personal history of COVID-19; I16.0 Hypertensive urgency; R29.711 NIHSS score 11
CPT/HCPCS: 36415; 36416; 70450; 70496; 70498; 70551; 80053; 80061; 80306; 81001; 82962; 83036; 84484; 85025; 85610; 85730; 87077; 87086; 87186; 92507; 92523; 92610; 93005; 93306; 96365; 96366; 96367; 96372; 96375; 97110; 97116; 97161; 97166; 97530; 99285; J0696; J1650; J1815; J2060; J2405; J7030; J7040; Q0162; Q9967

== ENCOUNTER → 2020-07-31 11:20 | Outpatient (BNVA) | payer MEDICARE, MEDICAID, SELFPAY | PROVIDERS: PCP Internal Medicine; Referring Provider Internal Medicine; Visit Provider Orthopaedic Surgery | DX: T14.8XXA Other injury of unspecified body region, initial encounter (principal); X58.XXXA Exposure to other specified factors, initial encounter | CPT/HCPCS: 73060 ==

== ENCOUNTER → 2020-08-21 11:08 | Outpatient (BNVA) | payer MEDICARE, MEDICAID, SELFPAY | PROVIDERS: PCP Internal Medicine; Visit Provider Orthopaedic Surgery | DX: S42.201A Unspecified fracture of upper end of right humerus, initial encounter for closed fracture (principal); X58.XXXA Exposure to other specified factors, initial encounter | CPT/HCPCS: 73060 ==

== ENCOUNTER → 2020-10-02 00:01 | Outpatient (BNVA) | payer MEDICARE, MEDICAID, SELFPAY | PROVIDERS: PCP Internal Medicine; Visit Provider Internal Medicine | DX: E11.9 Type 2 diabetes mellitus without complications (principal); I10 Essential (primary) hypertension | CPT/HCPCS: 83036 ==

== ENCOUNTER → 2021-10-07 15:31 | Outpatient (BNVA) | payer MEDICARE, MEDICAID, SELFPAY | PROVIDERS: PCP Internal Medicine; Visit Provider Internal Medicine | DX: I10 Essential (primary) hypertension (principal); E78.5 Hyperlipidemia, unspecified; I63.9 Cerebral infarction, unspecified; E11.9 Type 2 diabetes mellitus without complications | CPT/HCPCS: 82962 ==

== ENCOUNTER 2021-11-14 10:59 | Outpatient (RCR) | payer MEDICARE, SELFPAY | END 2021-11-22 23:59 | disposition home or self-care (01) | LOC: SPT 10:59 | PROVIDERS: PCP Internal Medicine; Visit Provider Internal Medicine | DX: M25.361 Other instability, right knee (principal) | CPT/HCPCS: 97110; 97162 ==

== ENCOUNTER 2021-11-23 06:00 | Outpatient (RCR) | payer MEDICARE, MEDICAID, SELFPAY | END 2021-12-12 23:59 | disposition home or self-care (01) | LOC: SPT 06:00 | PROVIDERS: PCP Internal Medicine; Visit Provider Internal Medicine | DX: M25.361 Other instability, right knee (principal) | CPT/HCPCS: 97110 ==

== ENCOUNTER 2022-01-03 17:31 | Emergency (ER) | payer MEDICARE, MEDICAID, SELFPAY ==
[2022-01-03 17:35] VITALS: BP 183/91; PULSE 93; RESP 16; TEMP 36.3; O2SAT 95; BMI 28.1
--- NOTE | 2022-01-03 18:13 | ECG_ITS ---
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 Measurements Intervals [place] Rate: 87 P: 79 CA: 199 QRS: 69 QRSD: 90 T: 109 QT: 377 QTc: 454 Interpretive Statements SINUS RHYTHM ST DEVIATION AND MODERATE T-WAVE ABNORMALITY, CONSIDER LATERAL ISCHEMIA [-0.1+ mV T-WAVE IN I/aVL/V5/V6] Compared to ECG 05/19/2020 16:04:51 Possible ischemia now present T-wave abnormality still present Electronically Signed On 01-04-2022 15:29:27 MILK DELIVERER by Rema Hurtado M.D. [email or web address] ([id number]
[2022-01-03 19:26] LABS: Basophils % 0.5 %; Eosinophils # 0.2 10^3/uL (0.0-0.8); Eosinophils % 2.2 %; Hematocrit 41.2 % (37.0-47.0); Hemoglobin 13.7 g/dL (11.5-15.3); Lymphocytes # 2.8 10^3/uL (0.8-4.8); Lymphocytes % 31.9 %; Mean Corpuscular HGB Conc 33.3 g/dL (30.0-36.0); Mean Corpuscular Hemoglobin 27.3 pg (28.0-34.0); Mean Corpuscular Volume 82.1 fl (81-99); Monocytes # 0.5 10^3/uL (0.2-0.9); Monocytes % 5.5 %; Neutrophils # 5.24 10^3/uL (1.8-7.7); Neutrophils % 59.4 %; Nucleated Red Blood Cells % 0 %; Platelet Count 290 10^3/cmm (130-400); Red Blood Count 5.02 10^6/uL (4.1-5.3); Red Cell Distribution Width 14.5 % (12.1-15.1); White Blood Count 8.8 10^3/uL (4.0-10.0)
[2022-01-03 19:43] LABS: Troponin(5th) Baseline 10 ng/L (0-10)
[2022-01-03 19:53] LABS: Alanine Aminotransferase 59 U/L (0-33); Albumin Level 4.1 g/dL (3.5-5.2); Alkaline Phosphatase 108 U/L (35-105); Aspartate Amino Transferase 33 U/L (0-32); Blood Urea Nitrogen 12 mg/dL (8-23); Calcium 9.4 mg/dL (8.5-10.5); Carbon Dioxide 25 mmol/L (22-29); Chloride 99 mmol/L (98-107); Globulin 3.5 g/dL (1.3-4.6); Glomerular Filtration Rate 123.4 mL/min (90-130); Glucose 205 mg/dL (65-115); NT Pro B Type Natriuretic Pept 36 pg/mL (0-125); Osmolality Calculated 288 mOsm/kg (285-295); Sodium 136 mmol/L (136-145); Total Bilirubin 0.4 mg/dL (0.15-1.2); Total Protein 7.6 g/dL (6.6-8.7)
--- NOTE | 2022-01-03 20:50 | ECG_ITS ---
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 Measurements Intervals [place] Rate: 85 P: 75 MT: 203 QRS: 63 QRSD: 93 T: 103 QT: 373 QTc: 444 Interpretive Statements SINUS RHYTHM NONSPECIFIC ST & T-WAVE ABNORMALITY Compared to ECG 05/19/2020 16:04:51 No significant changes Electronically Signed On 01-04-2022 15:08:18 SHOT PEEN OPERATOR by Rema Hurtado M.D. [id number]
[2022-01-03 21:29] LABS: Troponin 5 2HR 10.31 ng/L (0-10)
[2022-01-03 21:33] LABS: Add Urine Microscopic? YES; Bilirubin Urine Neg (Negative); Blood Urine Neg (Negative); Glucose Urine UA Norm (Normal); Ketones Urine Negative (Negative); Leukocyte Esterase Urine 2+ (Negative); Nitrate Urine Negative (Negative); Protein Urine Trace (Negative); Specific Gravity, Urine 1.015 (1.005-1.030); Urine Appearance SL Hazy (CLEAR); Urine Color Yellow (Yellow); Urobilinogen Urine Norm (Negative); pH Urine 6 (5-7)
[2022-01-03 21:34] LABS: WBC Urine 15-25 /hpf (0-5)
[2022-01-03 21:35] LABS: Add Urine Culture? No; Bacteria Urine 1+ /hpf; Squamous Epithelial Cell Urine 25-40 /hpf (0-5)
[2022-01-03 21:36] LABS: Troponin 5 2HR Delta 0.31 ABS# (0-10)
== END 2022-01-03 22:04 | disposition left against medical advice (07) ==
PROVIDERS: Emergency Medicine; Emergency Provider Family Medicine; PCP Internal Medicine
DX: Z53.21 Procedure and treatment not carried out due to patient leaving prior to being seen by health care provider (principal)
CPT/HCPCS: 36415; 80053; 81001; 83880; 84484; 85025; 93005; 99285

== ENCOUNTER → 2022-03-13 12:28 | Outpatient (BNVA) | payer MEDICARE, MEDICAID, SELFPAY | PROVIDERS: PCP Family Medicine; Visit Provider Family Medicine | DX: I10 Essential (primary) hypertension; E78.5 Hyperlipidemia, unspecified; E11.621 Type 2 diabetes mellitus with foot ulcer; L97.509 Non-pressure chronic ulcer of other part of unspecified foot with unspecified severity; E55.9 Vitamin D deficiency, unspecified | CPT/HCPCS: 80053; 80061; 82306; 82607; 83036; 83735; 84439; 84443; 84481; 85025 ==

== ENCOUNTER → 2022-04-22 07:31 | Outpatient (BNVA) | payer MEDICARE, MEDICAID, SELFPAY | PROVIDERS: PCP Family Medicine; Visit Provider Otolaryngology | DX: G47.33 Obstructive sleep apnea (adult) (pediatric) (principal); K14.8 Other diseases of tongue | CPT/HCPCS: 99203 ==

== ENCOUNTER → 2022-05-06 13:08 | Outpatient (BNVA) | payer MEDICARE, MEDICAID, SELFPAY | PROVIDERS: PCP Family Medicine; Visit Provider Family Medicine | DX: L02.01 Cutaneous abscess of face (principal) | CPT/HCPCS: 87070; 87075; 87205 ==

== ENCOUNTER → 2022-07-08 11:00 | Outpatient (BNVA) | payer MEDICARE, MEDICAID, SELFPAY | PROVIDERS: PCP Family Medicine; Referring Provider Family Medicine; Visit Provider Nurse Practitioner Family | DX: L72.0 Epidermal cyst (principal); L81.4 Other melanin hyperpigmentation; D22.5 Melanocytic nevi of trunk; Z71.89 Other specified counseling; L85.3 Xerosis cutis | CPT/HCPCS: 99203 ==

== ENCOUNTER → 2022-07-23 10:57 | Outpatient (BNVA) | payer MEDICARE, MEDICAID, SELFPAY | PROVIDERS: PCP Family Medicine; Visit Provider Dermatology | DX: L72.0 Epidermal cyst (principal) | CPT/HCPCS: 10060; 11442; 12052 ==

== ENCOUNTER → 2022-11-05 12:31 | Outpatient (BNVA) | payer MEDICARE, MEDICAID, SELFPAY | PROVIDERS: PCP Family Medicine; Visit Provider Family Medicine | DX: E11.9 Type 2 diabetes mellitus without complications (principal); E78.5 Hyperlipidemia, unspecified; I10 Essential (primary) hypertension; Z86.31 Personal history of diabetic foot ulcer; G47.33 Obstructive sleep apnea (adult) (pediatric) | CPT/HCPCS: 80053; 80061; 83036; 84439; 84443; 84481 ==

== ENCOUNTER → 2023-01-20 13:41 | Outpatient (BNVA) | payer MEDICARE, MEDICAID, SELFPAY | PROVIDERS: PCP Family Medicine; Visit Provider Dermatology | DX: D22.39 Melanocytic nevi of other parts of face (principal); L81.4 Other melanin hyperpigmentation; L72.0 Epidermal cyst | CPT/HCPCS: 99213 ==

== ENCOUNTER → 2023-02-05 10:05 | Outpatient (BNVA) | payer MEDICARE, MEDICAID, SELFPAY | PROVIDERS: PCP Family Medicine; Referring Provider Family Medicine; Visit Provider Internal Medicine | DX: E78.5 Hyperlipidemia, unspecified; Z86.31 Personal history of diabetic foot ulcer; Z86.73 Personal history of transient ischemic attack (TIA), and cerebral infarction without residual deficits; E11.319 Type 2 diabetes mellitus with unspecified diabetic retinopathy without macular edema; Z79.84 Long term (current) use of oral hypoglycemic drugs; Z79.4 Long term (current) use of insulin | CPT/HCPCS: 36415; 80053; 80061; 82044; 83036; 99214 ==

== ENCOUNTER → 2023-02-19 11:02 | Outpatient (BNVA) | payer MEDICARE, MEDICAID, SELFPAY | PROVIDERS: PCP Family Medicine; Visit Provider Internal Medicine | DX: Z86.31 Personal history of diabetic foot ulcer (principal); E11.9 Type 2 diabetes mellitus without complications; I10 Essential (primary) hypertension; E78.5 Hyperlipidemia, unspecified; Z86.73 Personal history of transient ischemic attack (TIA), and cerebral infarction without residual deficits; Z79.4 Long term (current) use of insulin; Z79.84 Long term (current) use of oral hypoglycemic drugs; Z79.85 Long-term (current) use of injectable non-insulin antidiabetic drugs | CPT/HCPCS: 99214 ==

== ENCOUNTER 2023-03-18 10:03 | Outpatient (CLI) | payer MEDICARE, MEDICAID, SELFPAY ==
[2023-03-18 11:06] LABS: Alanine Aminotransferase 29 U/L (0-33); Albumin Level 3.9 g/dL (3.5-5.2); Alkaline Phosphatase 101 U/L (35-105); Anion Gap 16.8 (5-19); Aspartate Amino Transferase 18 U/L (0-32); Blood Urea Nitrogen 15 mg/dL (8-23); Calcium 9.3 mg/dL (8.5-10.5); Carbon Dioxide 21 mmol/L (22-29); Chloride 105 mmol/L (98-107); Chol HDL Ratio 2.14 mg/dL (0.0-4.40); Cholesterol 92 mg/dL (0-200); Glomerular Filtration Rate 83.2 mL/min (90-130); Glucose 121 mg/dL (65-115); HDL Cholesterol 43 mg/dL (60-100); LDL Cholesterol Calculated 20 mg/dL (50-129); LDL HDL Ratio 0.47 RATIO (0.00-3.22); Osmolality Calculated 290 mOsm/kg (285-295); Potassium 3.8 mmol/L (3.5-5.1); Sodium 139 mmol/L (136-145); Total Bilirubin 0.7 mg/dL (0.15-1.2); Total Protein 6.9 g/dL (6.6-8.7); Triglycerides 143 mg/dL (0-150)
[2023-03-18 11:09] LABS: Creatinine Urine, Random 314 mg/dL (28-217); Microalbum Creatinine Ratio Ur 35 mg/dL (0-20); Microalbumin Random Urine 11 ug/dL (0-20)
[2023-03-18 11:18] LABS: Estmated Average Glucose 203; Hemoglobin A1C 8.7 % (4.0-6.0)
== END 2023-03-18 10:04 | disposition home or self-care (01) ==
LOC: LAB 10:04
PROVIDERS: PCP Family Medicine; Visit Provider Internal Medicine
DX: E11.9 Type 2 diabetes mellitus without complications (principal); Z86.31 Personal history of diabetic foot ulcer; I10 Essential (primary) hypertension
CPT/HCPCS: 36415; 80053; 80061; 82044; 83036

== ENCOUNTER → 2023-03-24 11:21 | Outpatient (BNVA) | payer MEDICARE, MEDICAID, SELFPAY | PROVIDERS: PCP Family Medicine; Visit Provider Internal Medicine | DX: E11.9 Type 2 diabetes mellitus without complications (principal); E78.5 Hyperlipidemia, unspecified; Z86.31 Personal history of diabetic foot ulcer; Z86.73 Personal history of transient ischemic attack (TIA), and cerebral infarction without residual deficits; Z79.4 Long term (current) use of insulin; Z79.84 Long term (current) use of oral hypoglycemic drugs | CPT/HCPCS: 99214 ==

== ENCOUNTER 2023-06-23 09:54 | Outpatient (CLI) | payer MEDICARE, MEDICAID, SELFPAY ==
[2023-06-23 10:47] LABS: Estmated Average Glucose 212
[2023-06-23 10:48] LABS: Alanine Aminotransferase 25 U/L (0-33); Albumin Level 3.7 g/dL (3.5-5.2); Alkaline Phosphatase 114 U/L (35-105); Anion Gap 13.2 (5-19); Aspartate Amino Transferase 17 U/L (0-32); Blood Urea Nitrogen 15 mg/dL (8-23); Calcium 8.2 mg/dL (8.5-10.5); Carbon Dioxide 25 mmol/L (22-29); Chloride 103 mmol/L (98-107); Chol HDL Ratio 2.89 mg/dL (0.0-4.40); Cholesterol 136 mg/dL (0-200); Globulin 2.8 g/dL (1.3-4.6); Glomerular Filtration Rate 83.2 mL/min (90-130); Glucose 232 mg/dL (65-115); HDL Cholesterol 47 mg/dL (60-100); LDL Cholesterol Calculated 47 mg/dL (50-129); Osmolality Calculated 292 mOsm/kg (285-295); Potassium 4.2 mmol/L (3.5-5.1); Sodium 137 mmol/L (136-145); Total Bilirubin 0.7 mg/dL (0.15-1.2); Total Protein 6.5 g/dL (6.6-8.7); Triglycerides 208 mg/dL (0-150)
[2023-06-23 11:01] LABS: Creatinine Urine, Random 152 mg/dL (28-217); Microalbumin Random Urine 9 ug/dL (0-20)
[2023-06-23 11:02] LABS: Microalbum Creatinine Ratio Ur 59 mg/dL (0-20)
== END 2023-06-23 09:55 | disposition home or self-care (01) ==
LOC: LAB 09:56
PROVIDERS: PCP Family Medicine; Visit Provider Internal Medicine
DX: E11.9 Type 2 diabetes mellitus without complications (principal)
CPT/HCPCS: 36415; 80053; 80061; 82044; 83036

== ENCOUNTER → 2023-06-26 10:52 | Outpatient (BNVA) | payer MEDICARE, MEDICAID, SELFPAY | PROVIDERS: PCP Family Medicine; Visit Provider Internal Medicine | DX: Z86.31 Personal history of diabetic foot ulcer (principal); E11.65 Type 2 diabetes mellitus with hyperglycemia; E78.5 Hyperlipidemia, unspecified; I10 Essential (primary) hypertension; Z86.73 Personal history of transient ischemic attack (TIA), and cerebral infarction without residual deficits; Z79.84 Long term (current) use of oral hypoglycemic drugs; Z79.4 Long term (current) use of insulin | CPT/HCPCS: 99215 ==

== ENCOUNTER 2023-09-29 09:42 | Outpatient (CLI) | payer MEDICARE, SELFPAY ==
[2023-09-29 10:47] LABS: Alanine Aminotransferase 20 U/L (0-33); Albumin Level 3.9 g/dL (3.5-5.2); Alkaline Phosphatase 104 U/L (35-105); Anion Gap 17.3 (5-19); Aspartate Amino Transferase 13 U/L (0-32); Blood Urea Nitrogen 16 mg/dL (8-23); Calcium 8.7 mg/dL (8.5-10.5); Carbon Dioxide 21 mmol/L (22-29); Chloride 106 mmol/L (98-107); Chol HDL Ratio 2.35 mg/dL (0.0-4.40); Cholesterol 108 mg/dL (0-200); Globulin 3.2 g/dL (1.3-4.6); Glomerular Filtration Rate 83.2 mL/min (90-130); Glucose 251 mg/dL (65-115); HDL Cholesterol 46 mg/dL (60-100); LDL Cholesterol Calculated 35 mg/dL (50-129); LDL HDL Ratio 0.76 RATIO (0.00-3.22); Osmolality Calculated 300 mOsm/kg (285-295); Potassium 4.3 mmol/L (3.5-5.1); Sodium 140 mmol/L (136-145); Total Bilirubin 0.6 mg/dL (0.15-1.2); Total Protein 7.1 g/dL (6.6-8.7); Triglycerides 137 mg/dL (0-150)
[2023-09-29 10:50] LABS: Creatinine Urine, Random 231 mg/dL (28-217); Microalbum Creatinine Ratio Ur 13 mg/dL (0-20); Microalbumin Random Urine 3 ug/dL (0-20)
[2023-09-29 11:02] LABS: Estmated Average Glucose 197; Hemoglobin A1C 8.5 % (4.0-6.0)
== END 2023-09-29 09:43 | disposition home or self-care (01) ==
LOC: LAB 09:43
PROVIDERS: PCP Family Medicine; Visit Provider Internal Medicine
DX: E11.9 Type 2 diabetes mellitus without complications (principal); I10 Essential (primary) hypertension; E78.5 Hyperlipidemia, unspecified; Z86.31 Personal history of diabetic foot ulcer
CPT/HCPCS: 36415; 80053; 80061; 82044; 83036

== ENCOUNTER → 2023-10-06 11:15 | Outpatient (BNVA) | payer MEDICARE, MEDICAID, SELFPAY | PROVIDERS: PCP Family Medicine; Visit Provider Internal Medicine | DX: Z86.31 Personal history of diabetic foot ulcer (principal); E11.9 Type 2 diabetes mellitus without complications; E78.5 Hyperlipidemia, unspecified; I10 Essential (primary) hypertension; Z86.73 Personal history of transient ischemic attack (TIA), and cerebral infarction without residual deficits; Z79.4 Long term (current) use of insulin; Z79.84 Long term (current) use of oral hypoglycemic drugs | CPT/HCPCS: 99214 ==

== ENCOUNTER 2024-02-01 10:36 | Outpatient (CLI) | payer MEDICARE, SELFPAY ==
[2024-02-01 11:22] LABS: Alanine Aminotransferase 26 U/L (0-33); Albumin Level 3.8 g/dL (3.5-5.2); Alkaline Phosphatase 125 U/L (35-105); Anion Gap 14.1 (5-19); Aspartate Amino Transferase 18 U/L (0-32); Blood Urea Nitrogen 15 mg/dL (8-23); Calcium 9.2 mg/dL (8.5-10.5); Carbon Dioxide 25 mmol/L (22-29); Chloride 102 mmol/L (98-107); Cholesterol 138 mg/dL (0-200); Globulin 3.4 g/dL (1.3-4.6); Glomerular Filtration Rate 99.1 mL/min (90-130); Glucose 274 mg/dL (65-115); HDL Cholesterol 53 mg/dL (60-100); LDL Cholesterol Calculated 54 mg/dL (50-129); LDL HDL Ratio 1.02 RATIO (0.00-3.22); Osmolality Calculated 295 mOsm/kg (285-295); Potassium 4.1 mmol/L (3.5-5.1); Sodium 137 mmol/L (136-145); Total Bilirubin 0.4 mg/dL (0.15-1.2); Total Protein 7.2 g/dL (6.6-8.7); Triglycerides 153 mg/dL (0-150)
[2024-02-01 11:23] LABS: Creatinine Urine, Random 222 mg/dL (28-217); Microalbum Creatinine Ratio Ur 32 mg/dL (0-20); Microalbumin Random Urine 7 ug/dL (0-20)
[2024-02-01 11:30] LABS: Estmated Average Glucose 220; Hemoglobin A1C 9.3 % (4.0-6.0)
== END 2024-02-01 10:37 | disposition home or self-care (01) ==
LOC: LAB 10:39
PROVIDERS: PCP Family Medicine; Visit Provider Internal Medicine
DX: E11.9 Type 2 diabetes mellitus without complications (principal); Z86.31 Personal history of diabetic foot ulcer; E78.5 Hyperlipidemia, unspecified; I10 Essential (primary) hypertension
CPT/HCPCS: 36415; 80053; 80061; 82044; 83036

== ENCOUNTER → 2024-02-08 11:20 | Outpatient (BNVA) | payer MEDICARE, SELFPAY | PROVIDERS: PCP Family Medicine; Visit Provider Internal Medicine | DX: E11.9 Type 2 diabetes mellitus without complications (principal); E78.5 Hyperlipidemia, unspecified; Z86.31 Personal history of diabetic foot ulcer; Z86.73 Personal history of transient ischemic attack (TIA), and cerebral infarction without residual deficits; I10 Essential (primary) hypertension; Z79.84 Long term (current) use of oral hypoglycemic drugs; Z79.4 Long term (current) use of insulin | CPT/HCPCS: 99214 ==

== ENCOUNTER 2024-05-06 09:14 | Outpatient (CLI) | payer MEDICARE, SELFPAY ==
[2024-05-06 09:59] LABS: Estmated Average Glucose 220; Hemoglobin A1C 9.3 % (4.0-6.0)
[2024-05-06 10:04] LABS: Alanine Aminotransferase 18 U/L (0-33); Albumin Level 3.5 g/dL (3.5-5.2); Alkaline Phosphatase 107 U/L (35-105); Anion Gap 14.8 (5-19); Aspartate Amino Transferase 16 U/L (0-32); Blood Urea Nitrogen 12 mg/dL (8-23); Calcium 8.4 mg/dL (8.5-10.5); Carbon Dioxide 25 mmol/L (22-29); Chloride 103 mmol/L (98-107); Chol HDL Ratio 2.62 mg/dL (0.0-4.40); Cholesterol 118 mg/dL (0-200); Globulin 3.6 g/dL (1.3-4.6); Glomerular Filtration Rate 99.1 mL/min (90-130); Glucose 135 mg/dL (65-115); HDL Cholesterol 45 mg/dL (60-100); LDL Cholesterol Calculated 59 mg/dL (50-129); LDL HDL Ratio 1.31 RATIO (0.00-3.22); Osmolality Calculated 290 mOsm/kg (285-295); Potassium 3.8 mmol/L (3.5-5.1); Sodium 139 mmol/L (136-145); Total Bilirubin 0.6 mg/dL (0.15-1.2); Total Protein 7.1 g/dL (6.6-8.7); Triglycerides 68 mg/dL (0-150)
[2024-05-06 10:09] LABS: Creatinine Urine, Random 199 mg/dL (28-217); Microalbum Creatinine Ratio Ur 50 mg/dL (0-20); Microalbumin Random Urine 10 ug/dL (0-20)
== END 2024-05-06 09:15 | disposition home or self-care (01) ==
LOC: LAB 09:15
PROVIDERS: PCP Family Medicine; Visit Provider Internal Medicine
DX: E11.9 Type 2 diabetes mellitus without complications (principal); Z86.31 Personal history of diabetic foot ulcer; E78.5 Hyperlipidemia, unspecified; I10 Essential (primary) hypertension
CPT/HCPCS: 36415; 80053; 80061; 82044; 83036

== ENCOUNTER → 2024-05-10 11:00 | Outpatient (BNVA) | payer MEDICARE, SELFPAY | PROVIDERS: PCP Family Medicine; Visit Provider Internal Medicine | DX: E11.9 Type 2 diabetes mellitus without complications (principal); E78.5 Hyperlipidemia, unspecified; I10 Essential (primary) hypertension; Z86.73 Personal history of transient ischemic attack (TIA), and cerebral infarction without residual deficits; Z86.31 Personal history of diabetic foot ulcer | CPT/HCPCS: 99214 ==

== ENCOUNTER 2024-08-08 10:05 | Outpatient (CLI) | payer OTHER, SELFPAY ==
[2024-08-08 11:05] LABS: Estmated Average Glucose 189; Hemoglobin A1C 8.2 % (4.0-6.0)
[2024-08-08 11:06] LABS: Alanine Aminotransferase 21 U/L (0-33); Albumin Level 3.8 g/dL (3.5-5.2); Alkaline Phosphatase 92 U/L (35-105); Anion Gap 17.6 (5-19); Aspartate Amino Transferase 15 U/L (0-32); Blood Urea Nitrogen 13 mg/dL (8-23); Calcium 8.7 mg/dL (8.5-10.5); Carbon Dioxide 22 mmol/L (22-29); Chloride 104 mmol/L (98-107); Chol HDL Ratio 3.31 mg/dL (0.0-4.40); Cholesterol 169 mg/dL (0-200); Globulin 3.1 g/dL (1.3-4.6); Glucose 201 mg/dL (65-115); HDL Cholesterol 51 mg/dL (60-100); LDL Cholesterol Calculated 95 mg/dL (50-129); LDL HDL Ratio 1.86 RATIO (0.00-3.22); Osmolality Calculated 294 mOsm/kg (285-295); Potassium 4.6 mmol/L (3.5-5.1); Sodium 139 mmol/L (136-145); Total Bilirubin 0.6 mg/dL (0.15-1.2); Total Protein 6.9 g/dL (6.6-8.7); Triglycerides 117 mg/dL (0-150)
[2024-08-08 11:15] LABS: Creatinine Urine, Random 90 mg/dL (28-217); Microalbum Creatinine Ratio Ur 11 mg/dL (0-20); Microalbumin Random Urine 1 ug/dL (0-20)
== END 2024-08-08 10:06 | disposition home or self-care (01) ==
PROVIDERS: PCP Family Medicine; Visit Provider Internal Medicine
DX: E11.9 Type 2 diabetes mellitus without complications (principal); E78.5 Hyperlipidemia, unspecified; I10 Essential (primary) hypertension; Z86.73 Personal history of transient ischemic attack (TIA), and cerebral infarction without residual deficits; Z86.31 Personal history of diabetic foot ulcer
CPT/HCPCS: 36415; 80053; 80061; 82044; 83036

== ENCOUNTER → 2024-08-09 10:14 | Outpatient (BNVA) | payer MEDICARE, SELFPAY | PROVIDERS: PCP Family Medicine; Visit Provider Internal Medicine | DX: E11.9 Type 2 diabetes mellitus without complications (principal); I10 Essential (primary) hypertension; E78.5 Hyperlipidemia, unspecified; Z86.31 Personal history of diabetic foot ulcer; Z86.73 Personal history of transient ischemic attack (TIA), and cerebral infarction without residual deficits | CPT/HCPCS: 99214 ==

== ENCOUNTER 2024-11-07 14:10 | Outpatient (CLI) | payer MEDICARE, SELFPAY ==
[2024-11-07 14:59] LABS: Alanine Aminotransferase 26 U/L (0-33); Albumin Level 4.0 g/dL (3.5-5.2); Alkaline Phosphatase 88 U/L (35-105); Anion Gap 17.3 (5-19); Aspartate Amino Transferase 22 U/L (0-32); Blood Urea Nitrogen 13 mg/dL (8-23); Calcium 8.6 mg/dL (8.5-10.5); Carbon Dioxide 21 mmol/L (22-29); Chloride 107 mmol/L (98-107); Cholesterol 181 mg/dL (0-200); Globulin 3.2 g/dL (1.3-4.6); Glucose 248 mg/dL (65-115); HDL Cholesterol 52 mg/dL (60-100); Osmolality Calculated 300 mOsm/kg (285-295); Potassium 4.3 mmol/L (3.5-5.1); Sodium 141 mmol/L (136-145); Total Protein 7.2 g/dL (6.6-8.7); Triglycerides 228 mg/dL (0-150)
[2024-11-07 15:04] LABS: Creatinine Urine, Random 359 mg/dL (28-217); Microalbum Creatinine Ratio Ur 33 mg/dL (0-20)
== END 2024-11-07 14:11 | disposition home or self-care (01) ==
LOC: LAB 14:11
PROVIDERS: PCP Family Medicine; Visit Provider Internal Medicine
DX: Z86.31 Personal history of diabetic foot ulcer (principal); Z86.73 Personal history of transient ischemic attack (TIA), and cerebral infarction without residual deficits; I10 Essential (primary) hypertension; E78.5 Hyperlipidemia, unspecified; E11.9 Type 2 diabetes mellitus without complications
CPT/HCPCS: 36415; 80053; 80061; 82044; 83036

== ENCOUNTER → 2024-11-08 11:07 | Outpatient (BNVA) | payer MEDICARE, SELFPAY | PROVIDERS: PCP Family Medicine; Visit Provider Internal Medicine | DX: E11.9 Type 2 diabetes mellitus without complications (principal); E78.5 Hyperlipidemia, unspecified; Z86.31 Personal history of diabetic foot ulcer; Z86.73 Personal history of transient ischemic attack (TIA), and cerebral infarction without residual deficits; I10 Essential (primary) hypertension; N17.9 Acute kidney failure, unspecified | CPT/HCPCS: 99214 ==

== ENCOUNTER 2025-02-03 11:45 | Outpatient (CLI) | payer MEDICARE, SELFPAY ==
[2025-02-03 12:43] LABS: Alanine Aminotransferase 26 U/L (0-33); Albumin Level 3.9 g/dL (3.5-5.2); Alkaline Phosphatase 93 U/L (35-105); Anion Gap 14.2 (5-19); Aspartate Amino Transferase 22 U/L (0-32); Blood Urea Nitrogen 12 mg/dL (8-23); Calcium 8.7 mg/dL (8.5-10.5); Carbon Dioxide 25 mmol/L (22-29); Chloride 102 mmol/L (98-107); Cholesterol 138 mg/dL (0-200); Globulin 2.8 g/dL (1.3-4.6); Glucose 320 mg/dL (65-115); HDL Cholesterol 50 mg/dL (60-100); Osmolality Calculated 296 mOsm/kg (285-295); Potassium 4.2 mmol/L (3.5-5.1); Sodium 137 mmol/L (136-145); Total Protein 6.7 g/dL (6.6-8.7); Triglycerides 114 mg/dL (0-150)
[2025-02-03 12:54] LABS: Creatinine Urine, Random 228 mg/dL (28-217); Microalbum Creatinine Ratio Ur 22 mg/dL (0-20)
[2025-02-03 13:08] LABS: Estmated Average Glucose 223; Hemoglobin A1C 9.4 % (4.0-6.0)
== END 2025-02-03 11:46 | disposition home or self-care (01) ==
LOC: LAB 11:47
PROVIDERS: PCP Family Medicine; Visit Provider Internal Medicine
DX: E11.9 Type 2 diabetes mellitus without complications (principal); I10 Essential (primary) hypertension; Z86.31 Personal history of diabetic foot ulcer
CPT/HCPCS: 80053; 80061; 82044; 83036